=== PATIENT | female | born 1935 | race Caucasian/White ===

== ENCOUNTER → 2018-04-29 07:45 | Outpatient (CLI) | payer MEDICARE, OTHER, SELFPAY ==
[2018-04-29 08:57] LABS: Blood Urea Nitrogen 19 mg/dL (7-17); Calcium 9.3 mg/dL (8.4-10.2); Carbon Dioxide 29 mmol/L (22-32); Chloride 101 mmol/L (98-107); Cholesterol 148 mg/dL (140-199); Estimated Glomerular Filt Rate 53.2 mL/min (>60); Glucose 121 mg/dL (80-110); HDL Cholesterol 64 mg/dL (40-60); HEMOLYSIS < 15 (0-50); LDL Cholesterol Calculated 68 mg/dL (<100); Potassium 4.7 mmol/L (3.4-5.1); Sodium 139 mmol/L (137-145); Triglycerides 82 mg/dL (35-150)
== END ==
PROVIDERS: PCP Family Medicine; Visit Provider Internal Medicine Cardiovascular Disease
DX: I10 Essential (primary) hypertension (principal); E78.5 Hyperlipidemia, unspecified
CPT/HCPCS: 36415; 80048; 80061

== ENCOUNTER → 2018-05-28 16:21 | Outpatient (CLI) | payer MEDICARE, OTHER, SELFPAY ==
[2018-05-28 18:09] LABS: Hep C Virus Ab w/Reflex Quant NEGATIVE s/c (NEGATIVE)
== END ==
PROVIDERS: Family Provider Family Medicine; PCP Family Medicine; Visit Provider Family Medicine
DX: Z20.5 Contact with and (suspected) exposure to viral hepatitis (principal)
CPT/HCPCS: 36415; 86803

== ENCOUNTER → 2018-06-08 08:24 | Outpatient (CLI) | payer MEDICARE, OTHER, SELFPAY ==
[2018-06-08 09:32] LABS: Alanine Aminotransferase 15 IU/L (9-52); Albumin 4.3 g/dL (3.5-5.0); Albumin Globulin Ratio 1.7 (1.0-2.8); Alkaline Phosphatase 68 U/L (38-126); Aspartate Aminotransferase 30 IU/L (14-36); Bilirubin Total 0.7 mg/dL (0.2-1.3); Blood Urea Nitrogen 17 mg/dL (7-17); Calcium 9.3 mg/dL (8.4-10.2); Carbon Dioxide 30 mmol/L (22-32); Chloride 103 mmol/L (98-107); Estimated Glomerular Filt Rate 53.2 mL/min (>60); Globulin 2.5 g/dL (1.7-4.1); Glucose 105 mg/dL (80-110); HEMOLYSIS < 15 (0-50); Potassium 4.8 mmol/L (3.4-5.1); Sodium 142 mmol/L (137-145); Total Protein 6.8 g/dL (6.3-8.2)
== END ==
PROVIDERS: PCP Family Medicine; Visit Provider Family Medicine
DX: J45.909 Unspecified asthma, uncomplicated (principal); R06.09 Other forms of dyspnea
CPT/HCPCS: 36415; 80053

== ENCOUNTER → 2018-06-14 16:12 | Outpatient (CLI) | payer MEDICARE, OTHER, SELFPAY ==
--- NOTE | 2018-06-18 10:40 | PM.PFT.1 ---
Pulmonary Function Test Referral & Results Date Patient Seen: 06/14/18 Requesting provider: Aisha Felton Indication: Dyspnea Results: The spirometry demonstrates an FVC of 2.47 L which is 112% of predicted. The FEV1 was measured at 1.86 L which is 115% of predicted. The FEV1/FVC ratio was 75 which is 101% of predicted. Following the administration of bronchodilator there was no appreciable change in above normal numbers. Lung volumes show an SVC of 2.59 L which is 111% of predicted. The diffusing capacity was measured at 15.99 which is 79% of predicted. No hemoglobin value was provided, so no correction for potential anemia could be made, if appropriate. The maximum voluntary ventilation was not performed Interpretation: This study demonstrates normal spirometry and maybe slight reduction in diffusing capacity unless patient is anemic. This might be consistent with some element of disease at the capillary alveolar level Clinical correlation suggested
== END ==
PROVIDERS: Family Provider Family Medicine; PCP Family Medicine; Visit Provider Family Medicine
DX: R06.09 Other forms of dyspnea (principal)
CPT/HCPCS: 94010; 94060; 94726; 94729

== ENCOUNTER → 2018-10-27 08:42 | Outpatient (CLI) | payer MEDICARE, OTHER, SELFPAY ==
[2018-10-27 09:56] LABS: Alanine Aminotransferase 21 IU/L (9-52); Albumin 4.6 g/dL (3.5-5.0); Albumin Globulin Ratio 1.8 (1.0-2.8); Alkaline Phosphatase 70 U/L (38-126); Aspartate Aminotransferase 27 IU/L (14-36); BUN Creatinine Ratio 22.2 (6-22); Bilirubin Total 0.6 mg/dL (0.2-1.3); Blood Urea Nitrogen 20 mg/dL (7-17); Calcium 9.6 mg/dL (8.4-10.2); Carbon Dioxide 28 mmol/L (22-32); Chloride 103 mmol/L (98-107); Cholesterol 145 mg/dL (140-199); Estimated Glomerular Filt Rate > 60.0 mL/min (>60); Globulin 2.6 g/dL (1.7-4.1); Glucose 109 mg/dL (80-110); HDL Cholesterol 85 mg/dL (40-60); HEMOLYSIS < 15 (0-50); LDL Cholesterol Calculated 46 mg/dL (<100); Potassium 4.9 mmol/L (3.4-5.1); Sodium 140 mmol/L (137-145); Total Protein 7.2 g/dL (6.3-8.2); Triglycerides 69 mg/dL (35-150)
== END ==
PROVIDERS: PCP Family Medicine; Visit Provider Family Medicine
DX: E78.5 Hyperlipidemia, unspecified (principal); I10 Essential (primary) hypertension; R73.9 Hyperglycemia, unspecified
CPT/HCPCS: 36415; 80053; 80061; 83036

== ENCOUNTER → 2018-12-22 09:07 | Outpatient (CLI) | payer MEDICARE, OTHER, SELFPAY ==
[2018-12-22 09:43] LABS: Add Manual Diff / Slide Review NO; Basophils Absolute Auto 100 /uL (0-100); Eosinophils Absolute Auto 300 /uL (0-450); Eosinophils Percent Auto 4.8 % (2-4); Hematocrit 37.6 % (36-46); Hemoglobin 12.8 g/dL (12.0-16.0); Lymphocytes Absolute Auto 2000 /uL (1100-4500); Mean Corpuscular Hemoglobin 32.3 PG (26-34); Monocytes Absolute Auto 500 /uL (0-900); Neutrophils Absolute Auto 2500 /uL (1500-7000); Neutrophils Percent Auto 47.2 % (50-75); Platelet Count 193 X10^3/uL (150-400); Red Blood Cell Count 3.96 X10^6/uL (4.0-5.2); Red Cell Distribution Width 13.7 % (11.6-14.8); White Blood Cell Count 5.3 X10^3/uL (4.5-11.0)
[2018-12-22 10:23] LABS: Alanine Aminotransferase 19 IU/L (9-52); Albumin 4.4 g/dL (3.5-5.0); Albumin Globulin Ratio 1.7 (1.0-2.8); Alkaline Phosphatase 88 U/L (38-126); Aspartate Aminotransferase 29 IU/L (14-36); Bilirubin Total 0.6 mg/dL (0.2-1.3); Blood Urea Nitrogen 24 mg/dL (7-17); Calcium 9.5 mg/dL (8.4-10.2); Carbon Dioxide 28 mmol/L (22-32); Chloride 100 mmol/L (98-107); Cholesterol 146 mg/dL (140-199); Estimated Glomerular Filt Rate 53.2 mL/min (>60); Globulin 2.6 g/dL (1.7-4.1); Glucose 118 mg/dL (80-110); HDL Cholesterol 66 mg/dL (40-60); HEMOLYSIS < 15 (0-50); LDL Cholesterol Calculated 68 mg/dL (<100); Sodium 136 mmol/L (137-145); Triglycerides 61 mg/dL (35-150)
[2018-12-22 10:46] LABS: Thyroid Stimulating Hormone 2.27 uIU/mL (0.47-4.68)
== END ==
PROVIDERS: Family Provider Family Medicine; PCP Family Medicine; Visit Provider Internal Medicine Cardiovascular Disease
DX: I10 Essential (primary) hypertension (principal); E78.5 Hyperlipidemia, unspecified
CPT/HCPCS: 36415; 80053; 80061; 84443; 85025

== ENCOUNTER → 2019-05-27 07:17 | Outpatient (CLI) | payer MEDICARE, OTHER, SELFPAY ==
[2019-05-27 08:01] LABS: Add Manual Diff / Slide Review NO; Basophils Absolute Auto 100 /uL (0-100); Basophils Percent Auto 0.9 % (0-2); Eosinophils Absolute Auto 200 /uL (0-450); Eosinophils Percent Auto 2.8 % (2-4); Hematocrit 37.5 % (36-46); Hemoglobin 12.9 g/dL (12.0-16.0); Lymphocytes Absolute Auto 2100 /uL (1100-4500); Lymphocytes Percent Auto 35.4 % (25-40); Mean Corpuscular HGB Conc 34.3 % (30-36); Mean Corpuscular Volume 96.2 fL (80-100); Monocytes Absolute Auto 600 /uL (0-900); Monocytes Percent Auto 10.3 % (3-14); Neutrophils Absolute Auto 3000 /uL (1500-7000); Neutrophils Percent Auto 50.6 % (50-75); Platelet Count 190 X10^3/uL (150-400); Red Cell Distribution Width 13.1 % (11.6-14.8)
[2019-05-27 08:17] LABS: Albumin 4.2 g/dL (3.5-5.0); Albumin Globulin Ratio 1.4 (1.0-2.8); Alkaline Phosphatase 72 U/L (38-126); Aspartate Aminotransferase 28 IU/L (14-36); BUN Creatinine Ratio 18.9 (6-22); Bilirubin Total 0.6 mg/dL (0.2-1.3); Blood Urea Nitrogen 17 mg/dL (7-17); Calcium 9.3 mg/dL (8.4-10.2); Carbon Dioxide 30 mmol/L (22-32); Chloride 99 mmol/L (98-107); Cholesterol 143 mg/dL (140-199); Estimated Glomerular Filt Rate 59.9 mL/min (>60); Globulin 2.9 g/dL (1.7-4.1); Glucose 105 mg/dL (80-110); HDL Cholesterol 69 mg/dL (40-60); HEMOLYSIS < 15 (0-50); LDL Cholesterol Calculated 58 mg/dL (<100); Potassium 3.7 mmol/L (3.4-5.1); Sodium 136 mmol/L (137-145); Total Protein 7.1 g/dL (6.3-8.2); Triglycerides 82 mg/dL (35-150)
[2019-05-27 08:27] LABS: Alanine Aminotransferase < 6 IU/L (9-52)
== END ==
PROVIDERS: Family Provider Family Medicine; PCP Family Medicine; Visit Provider Internal Medicine Cardiovascular Disease
DX: I10 Essential (primary) hypertension (principal); E78.5 Hyperlipidemia, unspecified; N18.9 Chronic kidney disease, unspecified; R73.9 Hyperglycemia, unspecified
CPT/HCPCS: 36415; 80053; 80061; 83036; 85025

== ENCOUNTER → 2019-08-30 08:48 | Outpatient (CLI) | payer MEDICARE, OTHER, SELFPAY ==
[2019-08-30 09:36] LABS: Alanine Aminotransferase 10 IU/L (<35); Albumin 4.6 g/dL (3.5-5.0); Albumin Globulin Ratio 1.6 (1.0-2.8); Alkaline Phosphatase 85 U/L (38-126); Aspartate Aminotransferase 30 IU/L (14-36); Bilirubin Total 0.8 mg/dL (0.2-1.3); Blood Urea Nitrogen 20 mg/dL (7-17); Calcium 9.5 mg/dL (8.4-10.2); Carbon Dioxide 29 mmol/L (22-32); Chloride 99 mmol/L (98-107); Estimated Glomerular Filt Rate 53.1 mL/min (>60); Globulin 2.9 g/dL (1.7-4.1); Glucose 127 mg/dL (80-110); HEMOLYSIS < 15 (0-50); Potassium 3.9 mmol/L (3.4-5.1); Sodium 138 mmol/L (137-145); Total Protein 7.5 g/dL (6.3-8.2)
== END ==
PROVIDERS: PCP Family Medicine; Visit Provider Family Medicine
DX: R73.9 Hyperglycemia, unspecified (principal); E78.5 Hyperlipidemia, unspecified; I10 Essential (primary) hypertension
CPT/HCPCS: 36415; 80053; 83036

== ENCOUNTER → 2019-12-01 09:11 | Outpatient (CLI) | payer MEDICARE, OTHER, SELFPAY ==
[2019-12-01 10:06] LABS: Hemoglobin A1C% w Est Avg Glu 6.2 % (4.0-6.0)
[2019-12-01 10:37] LABS: Alanine Aminotransferase 9 IU/L (<35); Albumin 4.6 g/dL (3.5-5.0); Albumin Globulin Ratio 1.5 (1.0-2.8); Alkaline Phosphatase 71 U/L (38-126); Aspartate Aminotransferase 30 IU/L (14-36); BUN Creatinine Ratio 21.2 (6-22); Bilirubin Total 0.8 mg/dL (0.2-1.3); Blood Urea Nitrogen 22 mg/dL (7-17); Calcium 9.9 mg/dL (8.4-10.2); Carbon Dioxide 30 mmol/L (22-32); Chloride 96 mmol/L (98-107); Cholesterol 135 mg/dL (140-199); Estimated Glomerular Filt Rate 50.7 mL/min (>60); Glucose 108 mg/dL (80-110); HDL Cholesterol 59 mg/dL (40-60); HEMOLYSIS < 15 (0-50); LDL Cholesterol Calculated 62 mg/dL (<100); Potassium 4.2 mmol/L (3.4-5.1); Sodium 134 mmol/L (137-145); Total Protein 7.6 g/dL (6.3-8.2); Triglycerides 69 mg/dL (35-150)
[2019-12-01 10:52] LABS: Creatinine Urine Random 89.1 mg/dL
[2019-12-01 10:55] LABS: Microalbumi Creatinin Ratio Ur 87.5 ug/mg CR (<30); Microalbumin Urine Random 7.8 mg/dL (0-1.6)
[2019-12-01 11:06] LABS: Thyroid Stimulating Hormone 2.39 uIU/mL (0.47-4.68)
== END ==
PROVIDERS: Family Medicine; PCP Family Medicine; Referring Provider Family Medicine; Visit Provider Family Medicine
DX: E78.5 Hyperlipidemia, unspecified (principal); I10 Essential (primary) hypertension; R73.9 Hyperglycemia, unspecified
CPT/HCPCS: 36415; 80053; 80061; 82043; 82570; 83036; 84443

== ENCOUNTER → 2020-07-18 09:14 | Outpatient (CLI) | payer MEDICARE, OTHER, SELFPAY ==
[2020-07-18 10:35] LABS: Add Manual Diff / Slide Review NO; Basophils Absolute Auto 100 /uL (0-100); Eosinophils Absolute Auto 300 /uL (0-450); Eosinophils Percent Auto 4.7 % (2-4); Hematocrit 35.3 % (36-46); Lymphocytes Absolute Auto 1500 /uL (1100-4500); Lymphocytes Percent Auto 23.9 % (25-40); Mean Corpuscular HGB Conc 33.9 % (30-36); Mean Corpuscular Hemoglobin 32.3 PG (26-34); Mean Corpuscular Volume 95.3 fL (80-100); Monocytes Absolute Auto 700 /uL (0-900); Monocytes Percent Auto 11.2 % (3-14); Neutrophils Absolute Auto 3700 /uL (1500-7000); Neutrophils Percent Auto 59.2 % (50-75); Platelet Count 219 X10^3/uL (150-400); White Blood Cell Count 6.2 X10^3/uL (4.5-11.0)
[2020-07-18 11:16] LABS: Alanine Aminotransferase 7 IU/L (<35); Albumin Globulin Ratio 1.5 (1.0-2.8); Alkaline Phosphatase 82 U/L (38-126); Aspartate Aminotransferase 27 IU/L (14-36); BUN Creatinine Ratio 18.1 (6-22); Bilirubin Total 0.6 mg/dL (0.2-1.3); Blood Urea Nitrogen 17 mg/dL (7-17); Calcium 9.2 mg/dL (8.4-10.2); Carbon Dioxide 30 mmol/L (22-32); Chloride 98 mmol/L (98-107); Cholesterol 116 mg/dL (140-199); Estimated Glomerular Filt Rate 56.9 mL/min (>60); Globulin 2.7 g/dL (1.7-4.1); Glucose 109 mg/dL (80-110); HDL Cholesterol 61 mg/dL (40-60); HEMOLYSIS < 15 (0-50); LDL Cholesterol Calculated 43 mg/dL (<100); Potassium 4.4 mmol/L (3.4-5.1); Sodium 133 mmol/L (137-145); Total Protein 6.7 g/dL (6.3-8.2); Triglycerides 61 mg/dL (35-150)
== END ==
PROVIDERS: PCP Family Medicine; Referring Provider Family Medicine; Visit Provider Family Medicine
DX: E78.5 Hyperlipidemia, unspecified (principal); I10 Essential (primary) hypertension; N18.9 Chronic kidney disease, unspecified
CPT/HCPCS: 36415; 80053; 80061; 85025

== ENCOUNTER → 2020-08-02 09:57 | Outpatient (CLI) | payer MEDICARE, OTHER, SELFPAY ==
--- NOTE | 2020-08-02 11:00 | DIET.PN ---
Nutrition Initial Assessment:? ASSESS:?? Ms. Neff is a 85 yof referred for prediabetes. She has maintained an A1c of 6.0 for several years, but is recently starting to creep up. She endorses many stresses in her life that she believes has affected her health and current elevated readings. She has many food allergies and sometimes finds it difficult to manage her glucose with strict dietary patterns. She consumed a lot of plant based proteins and likes to snack. She monitors her fasting glucose daily. LABS: Per pt report:? A1c: 6.2 ? MEDS:?? na ? DIET: Per 24-hour recall:? B: 1 cup oatmeal w/ blueberries and sunflower butter, ? cup cranb or egg scramble, 1 c rice milk L: chicken w/ vegetables and quinoa or rice ; cabbage casserole D: sunflour butter sandwich; chips w/ hummus; soup ? Weight: 112lb Height: 60 in BMI: 21.9 ? Exercise:? housework NUTRITION DX 1.Altered Nutrition related labs related to impaired glucose metabolism, lack of previous exposure to accurate nutrition information as evidenced by pt report, dx of prediabetes, previous diet high in refined carbohydrates.? INTERVENTION(s): 1. Discussed pathophysiology of diabetes. Reviewed A1c and its correlation to blood glucose numbers. Discussed recommended BG ranges. 2. Discussed importance of self-monitoring, how often, and when to check. 3. Discussed impact of nutrition/diet on blood sugar control.? Discussed fed versus non-fed state.?? 4. Discussed the effect of carbohydrates/protein/fat on blood sugar control.? Stressed importance of consistent carbohydrate intake at each meal and provided instructions for recommended servings/portions of carbohydrates/protein per meal. Provided pt with educational material. 5. Reviewed carbohydrate counting and measuring carbohydrate content via serving sizes and reading nutrition labels.? Provided handouts.?? 6. Discussed the difference between simple versus complex carbohydrates and the effect of fiber on blood sugar control.? Discussed various methods to increase fiber content in diet. 7. Stressed importance of meal timing and not going >4-5 hours between meals. Encouraged adding protein to each meal to support glucose control. Provided list of protein foods. Discussed best protein options for heart health and to alleviate hunger. 8. Discussed plant based protein options for maintaining good glucose control. MONITOR/EVALUATE: Anticipate good compliance.
== END ==
PROVIDERS: PCP Family Medicine; Referring Provider Family Medicine; Visit Provider Family Medicine
DX: R73.03 Prediabetes (principal); Z71.3 Dietary counseling and surveillance
CPT/HCPCS: 97802

== ENCOUNTER 2020-12-05 09:41 | Emergency (ER) | payer MEDICARE, OTHER, SELFPAY ==
[2020-12-05 10:11] VITALS: BP 140/63; PULSE 67; RESP 16; TEMP 36.7; O2SAT 94
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
--- NOTE | 2020-12-05 11:17 | PC.NURSE ---
concerns the allergic reaction is coming back up from last night.
== END 2020-12-05 11:18 | disposition home or self-care (01) ==
PROVIDERS: Emergency Provider Emergency Medicine
DX: R53.83 Other fatigue (principal)
CPT/HCPCS: 99281

== ENCOUNTER 2020-12-05 17:55 | Emergency (ER) | payer MEDICARE, OTHER, SELFPAY ==
[2020-12-05 18:05] VITALS: BP 173/78; PULSE 72; RESP 18; TEMP 36.7; O2SAT 97
--- NOTE | 2020-12-05 18:47 | ED.AMS ---
HPI - Altered Mental Status General Chief Complaint: Altered Mental Status Stated Complaint: possible UTI, concerns of a stroke also Time Seen by Provider: 12/05/20 18:12 Source: patient and family Mode of arrival: Ambulatory Limitations: no limitations History of Present Illness HPI narrative: The patient presents now with mid back pain. She was seen this morning with concerns of confusion. She has no confusion now. Her daughter is with her, the patient and her daughter concur that she has been under a lot of stress lately. The confusion that was discussed this morning has resolved, she feels oriented, no suggestion of acute neurologic events. She speaks well for herself. She denies headache, sore throat, or difficulty breathing. She has asthma, she has an occasional cough, nothing acute for her. There is not a single cough during the interview and exam. She says she is eating drinking well. There was concern of a urine infection. However, she has DDD, and has a degree of chronic back pain. She denies abdominal pain, dysuria or hematuria. She has no history of kidney stone. She is prediabetic. Otrher than the back discomfort, she feels well, with no concerns about confusion or neurologic deficit that were discussed with her morning visit here. Symptoms are vague, but her primary concern his a UTI. Related Data Home Medications Medication Instructions Recorded Confirmed calcium mag zinc PO 06/01/18 11/01/20 mecobalamin (vitamin B12) 1,000 1,000 mcg SL DAILY 06/01/18 11/01/20 mcg disintegrating tablet,sublingual [place] grape extract PO 06/01/18 11/01/20 Previous Rx's Medication Instructions Recorded [lancets] #100 each 10/20/19 [truetrack test strip] #100 each 12/30/19 albuterol sulfate 90 mcg/actuation 2 puff INHALATION Q4-6H PRN #18 05/31/20 aerosol inhaler gram chlorthalidone 25 mg tablet 12.5 mg PO DAILY #15 tab 06/11/20 nitroglycerin 0.3 mg sublingual 0.3 mg SUBLINGUAL Q5-15M PRN #30 06/11/20 tablet tab rosuvastatin 5 mg tablet 2.5 mg PO DAILY #15 tab 08/02/20 losartan 100 mg tablet 100 mg PO DAILY #90 tab 09/18/20 Truetrack test strips #100 ea 10/16/20 diphenhydramine HCl 12.5 mg 12.5 mg PO TID PRN #90 tab 11/01/20 chewable tablet Allergies Allergy/AdvReac Type Severity Reaction Status Date / Time zoster vaccine live Allergy Severe per pt Verified 11/01/20 08:03 [From ZOSTAVAX (PF)] throat thickening. Estrogens [ESTROGENS] Allergy Intermediate headache Verified 11/01/20 08:03 amoxicillin Allergy Mild Verified 11/01/20 08:03 cephalexin Allergy Mild Verified 11/01/20 08:03 codeine Allergy Mild Verified 11/01/20 08:03 fluticasone Allergy Mild Verified 11/01/20 08:03 lactose Allergy Mild Verified 11/01/20 08:03 niacin Allergy Mild Verified 11/01/20 08:03 peanut Allergy Mild Verified 11/01/20 08:03 salmeterol Allergy Mild Verified 11/01/20 08:03 Sulfa (Sulfonamide Allergy Mild Verified 11/01/20 08:03 Antibiotics) ORANGE Allergy Mild Uncoded 11/01/20 08:03 Review of Systems Constitutional Constitutional: Denies body ache(s), Denies chills, Denies fatigue, Denies fever(s), Denies headache(s) and Denies weakness Eyes Eyes: Denies change in vision ENT Ears, Nose, Mouth, and Throat: Denies vertigo, Denies dizziness, Denies headache(s), Denies neck pain and Denies sore throat Cardiovascular Cardiovascular: Denies chest pain, Denies irregular heart rhythm, Denies leg edema, Denies lightheadedness and Denies dyspnea Respiratory Respiratory: Denies cough, Denies dyspnea and Denies wheezing Gastrointestinal Gastrointestinal: Denies abdominal pain, Denies diarrhea, Denies nausea and Denies vomiting Genitourinary Genitourinary: Denies dysuria Genitourinary: Denies dysuria Musculoskeletal Musculoskeletal: Denies back pain and Denies neck pain Integumentary/Breasts Skin/Breast: Denies lesions and Denies rash Neurologic Neurologic: Denies vertigo, Denies dizziness, Denies headache(s), Denies memory loss and Denies weakness Psychiatric Psychiatric: Reports anxiety and Denies memory loss Endocrine Endocrine: Denies fatigue Allergic/Immunologic Allergic/Immunologic: Denies wheezing Patient History Medical History Anxiety Asthma Cataracts, bilateral Chickenpox Diabetes Environmental allergies Hyperlipemia Hypertension Low back pain (~10/2006) Measles Multiple food allergies Mumps Osteoarthritis Rubella Surgical History Hx of cataract surgery (11/2017) Status post breast biopsy (~1995) Family History Brother Diabetes mellitus Father Bladder cancer Congestive heart failure Mother Diabetes mellitus Grandfather Stroke Grandmother Diabetes mellitus Grandfather No problems noted. Grandmother Heart disease Social History Smoking Status: Never smoker Smoking Status: Never smoker Substance Use Type: does not use Exam Initial Vital Signs Initial Vital Signs: Vital Signs Temperature 98.1 F 12/05/20 18:05 Pulse Rate 72 12/05/20 18:05 Respiratory Rate 18 12/05/20 18:05 Blood Pressure 173/78 H 12/05/20 18:05 Pulse Oximetry 97 12/05/20 18:05 Const General: cooperative and well developed Nutritional Appearance: well nourished HENNY Head: normocephalic and atraumatic Nose: external nose normal Face and sinus: sinuses nontender and face symmetric Mouth: oral mucosae normal and moist mucous membranes Throat: posterior oropharynx normal Eyes General: appearance normal, both eyes and all related structures Eyelids: eyelids normal Conjunctivae: conjunctivae normal Sclera: sclerae normal Pupils: PERRL EOM: EOM intact bilaterally Neck Neck: No lymphadenopathy and No tender Resp Auscultation: clear to auscultation bilaterally Cardio Rate: regular rate Rhythm: regular rhythm Heart Sounds: S1 normal, S2 normal, no click, no gallops, no murmurs and no rubs Pulses: normal peripheral pulses GI Inspection: non-distended Palpation: soft, no hepatosplenomegaly, No guarding and No tender Auscultation: normal bowel sounds Back/Spine/Pelvis Back: No CVA tenderness Skin General: no rashes or lesions noted and No petechiae Neuro General: patient alert, patient oriented x3, gait normal and no focal motor deficits Speech: speech normal Motor: muscle tone normal throughout Sensory Exam: no sensory deficits noted Extrem General: normal to inspection, full ROM, no calf tenderness, No clubbing and No cyanosis Psych Appearance: grossly normal and well kempt Speech and Movement: speech and movement normal Course Course Course Narrative: The patient raise a concern for anxiety, she feels her doctor should treat her. Her daughter confided with me privately, there issues with anxiety. She also expresses paranoia. There was concern about deficits in memory periodically. The patient is oriented on exam, although the details of her prior evaluation raise concerns for paranoia, and memory issues. This complex is symptoms raises concern for dementia. The patient thinks she is anxiety. I have advised her to follow up with her PCM, F accepted by the patient, the daughter should also be present. The both symptoms should be discussed. The patient initially resisted labs and head CT. Prior to discharge she suggest she she would undergo the CT, then again decided not to proceed. Vital Signs Vital signs: Vital Signs - 8 hr 12/05/20 18:05 12/05/20 19:47 12/05/20 19:54 Temperature 98.1 F Pulse Rate 72 68 63 Respiratory Rate 18 16 16 Blood Pressure 173/78 H 180/85 H 174/82 H Pulse Oximetry 97 99 96 MDM - Altered Mental Status Lab Data Labs: Point of Care Testing Glucose POC 134 Urine Dip Bedside Urine Glucose Negative Bedside Urine Bilirubin - Negative Bedside Urine Ketone - Negative Urine Specific [place] 1.010 Bedside Urine Occult Blood - Negative Bedside Urine pH 6.0 Bedside Urine Protein - Negative Bedside Urine Urobilinogen - Negative Bedside Urine Nitrite - Negative Bedside Urine Leukocytes - Negative Esterase Discharge Plan Departure Patient Disposition: Home Clinical Impression: Anxiety Instructions: DI for Anxiety -- Adult Activity Restrictions/Additional Instructions: You have no evidence of urinary tract infection. Take Tylenol as needed every 4 hours for back pain. Follow-up with your primary care doctor, I think additional evaluation for anxiety and memory is indicated. Return here as needed. Prescriptions: No Action calcium mag zinc PO RF: 0 mecobalamin (vitamin B12) 1,000 mcg tablet,disintegrating 1,000 mcg SL DAILY RF: 0 [place] grape extract PO RF: 0 (DME) [lancets] 0 .Route .MEDSUPPLY Qty: 100 RF: 3 (DME) [truetrack test strip] 0 .Route .MEDSUPPLY Qty: 100 RF: 3 Ventolin HFA 90 mcg/actuation HFA aerosol inhaler 2 puff INHALATION Q4-6H PRN (Reason: shortness of breath or wheezing) Qty: 18 RF: 3 chlorthalidone 25 mg tablet 12.5 mg PO DAILY Qty: 15 RF: 0 nitroglycerin [Nitrostat] 0.3 mg tablet, sublingual 0.3 mg Sublingual Q5-15M PRN (Reason: chest pain) Qty: 30 RF: 0 rosuvastatin [Crestor] 5 mg tablet 2.5 mg PO DAILY Qty: 15 RF: 5 losartan 100 mg tablet 100 mg PO DAILY Qty: 90 RF: 0 (DME) Truetrack test strips See Rx Instructions .Route .MEDSUPPLY Qty: 100 RF: 12 Children's Benadryl Allergy 12.5 mg tablet,chewable 12.5 mg PO TID PRN (Reason: anxiety) Qty: 90 RF: 0
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
[2020-12-05 19:47] VITALS: BP 180/85; PULSE 68; RESP 16; O2SAT 99
[2020-12-05 19:54] VITALS: BP 174/82; PULSE 63; RESP 16; O2SAT 96
== END 2020-12-05 19:54 | disposition home or self-care (01) ==
PROVIDERS: Emergency Provider Emergency Medicine
DX: F41.9 Anxiety disorder, unspecified (principal); R41.0 Disorientation, unspecified; M54.6 Pain in thoracic spine; R53.83 Other fatigue
CPT/HCPCS: 81003; 82962; 99281; 99282

== ENCOUNTER → 2020-12-08 11:16 | Outpatient (CLI) | payer MEDICARE, OTHER, SELFPAY ==
[2020-12-08 11:51] LABS: COVID19 -Nasal RAPID Negative (Negative)
== END ==
PROVIDERS: PCP Family Medicine; Visit Provider Physician Assistant
DX: Z11.59 Encounter for screening for other viral diseases (principal)
CPT/HCPCS: 87635

== ENCOUNTER 2020-12-08 14:07 | Emergency (ER) | payer MEDICARE, OTHER, SELFPAY ==
[2020-12-08 14:17] VITALS: BP 181/76; PULSE 69; RESP 18; TEMP 36.4; O2SAT 100; BMI 21.1
--- NOTE | 2020-12-08 14:21 | ED.GENADULT ---
HPI - General Adult General Chief complaint: Skin/Abscess/Foreign Body Stated complaint: infection in left arm, sent by [facility] Time Seen by Provider: 12/08/20 14:08 Source: patient Mode of arrival: Ambulatory Limitations: no limitations History of Present Illness HPI narrative: Patient is an 85-year-old female who was seen in this department 2 times over the past couple days for an unrelated issue today. She states that yesterday she talk with her primary doctor about a small wound on the back of her left hand right at the base of her index and ring fingers. She states that her primary doctor ordered her a antibiotic ointment and informed her that if redness or swelling worsen that she needed to come to the emergency department. She arrives today could she thought that this morning she had redness around her left wrist. She has not started the antibiotic ointment. She is not having any fevers. Denies trauma. Related Data Home Medications Medication Instructions Recorded Confirmed calcium mag zinc PO 06/01/18 12/08/20 mecobalamin (vitamin B12) 1,000 1,000 mcg SL DAILY 06/01/18 12/08/20 mcg disintegrating tablet,sublingual o[place] grape extract PO 06/01/18 12/08/20 Previous Rx's Medication Instructions Recorded [lancets] #100 each 10/20/19 [truetrack test strip] #100 each 12/30/19 albuterol sulfate 90 mcg/actuation 2 puff INHALATION Q4-6H PRN #18 05/31/20 aerosol inhaler gram chlorthalidone 25 mg tablet 12.5 mg PO DAILY #15 tab 06/11/20 nitroglycerin 0.3 mg sublingual 0.3 mg SUBLINGUAL Q5-15M PRN #30 06/11/20 tablet tab rosuvastatin 5 mg tablet 2.5 mg PO DAILY #15 tab 08/02/20 Truetrack test strips #100 ea 10/16/20 diphenhydramine HCl 12.5 mg 12.5 mg PO TID PRN #90 tab 11/01/20 chewable tablet losartan 100 mg tablet 100 mg PO DAILY #90 tab 12/07/20 doxycycline hyclate 100 mg PO BID 7 Days #14 tab 12/08/20 doxycycline hyclate 100 mg capsule 100 mg PO BID 10 Days #20 cap 12/08/20 mupirocin 2 % topical ointment 1 applic TOPICAL BID #30 g 12/08/20 Allergies Allergy/AdvReac Type Severity Reaction Status Date / Time zoster vaccine live Allergy Severe per pt Verified 12/08/20 14:16 [From ZOSTAVAX (PF)] throat thickening. Estrogens [ESTROGENS] Allergy Intermediate headache Verified 12/08/20 14:16 amoxicillin Allergy Mild Verified 12/08/20 14:16 cephalexin Allergy Mild Verified 12/08/20 14:16 codeine Allergy Mild Verified 12/08/20 14:16 fluticasone Allergy Mild Verified 12/08/20 14:16 lactose Allergy Mild Verified 12/08/20 14:16 niacin Allergy Mild Verified 12/08/20 14:16 peanut Allergy Mild Verified 12/08/20 14:16 salmeterol Allergy Mild Verified 12/08/20 14:16 Sulfa (Sulfonamide Allergy Mild Verified 12/08/20 11:22 Antibiotics) ORANGE Allergy Mild Uncoded 12/08/20 11:22 Review of Systems Constitutional Constitutional: Denies fever(s) Musculoskeletal Musculoskeletal: Denies tingling Comments: No wrist pain Integumentary/Breasts Comments: Redness and swelling around the left rest Neurologic Neurologic: Denies tingling Patient History Medical History Anxiety Asthma Cataracts, bilateral Chickenpox Diabetes Environmental allergies Hyperlipemia Hypertension Low back pain (~10/2006) Measles Multiple food allergies Mumps Osteoarthritis Rubella Surgical History Hx of cataract surgery (11/2017) Status post breast biopsy (~1995) Family History Brother Diabetes mellitus Father Bladder cancer Congestive heart failure Mother Diabetes mellitus Grandfather Stroke Grandmother Diabetes mellitus Grandfather No problems noted. Grandmother Heart disease Social History Smoking Status: Never smoker Smoking Status: Never smoker Substance Use Type: does not use Exam Initial Vital Signs Initial Vital Signs: Vital Signs Temperature 97.6 F 12/08/20 14:17 Pulse Rate 69 12/08/20 14:17 Respiratory Rate 18 03/20/21 14:17 Blood Pressure 181/76 H 12/08/20 14:17 Pulse Oximetry 100 12/08/20 14:17 Const General: cooperative and comfortable Cardio Pulses: radial pulses present on the left Skin Other: Patient with a 1 cm x 1 cm superficial ulceration on the dorsum of the left hand in between her index and middle finger. There is minimal surrounding erythema. Starting approximately the proximal 1/3 of the dorsum of the hand extending to just above the wrist there is redness on the dorsum aspect without drainage. It does extend somewhat on the volar aspect of the wrist. Extrem General: capillary refill normal Other: Full range of motion left wrist Psych Appearance: well kempt Course Orders Ordered: Discontinued Medications Doxycycline Hyclate (Doxycycline Hyclate 100 Mg Tablet) 100 mg PO NOW ONE Stop: 12/08/20 14:24 Last Admin: 12/08/20 14:27 Dose: 100 mg Documented by: Vital Signs Vital signs: Vital Signs - 8 hr 12/08/20 14:17 Temperature 97.6 F Pulse Rate 69 Respiratory Rate 18 Blood Pressure 181/76 H Pulse Oximetry 100 Medical Decision Making MDM Narrative Medical decision making narrative: Patient states that she does not know the name of the antibiotic ointment that her primary doctor prescribed her but she did state that it was a cream. She has not taken it up to this point. Low suspicion for septic joint. Low suspicion for sepsis. Will start her on doxycycline given her allergies and the nature of her cellulitis today. She was given 1st dose here in the emergency department and will send home with a prescription. She is given return precautions and follow-up instructions. She expressed understanding agreement. I do not feel patient needs admitted to hospital today for IV antibiotics Discharge Plan Departure Patient Disposition: Home Clinical Impression: Cellulitis Instructions: DI for Cellulitis -- Adult Activity Restrictions/Additional Instructions: There does appear to be an infection on the back of your left hand. We do need to start you on antibiotics. A prescription was electronically transmitted to [facility]. You were given the 1st dose of your antibiotics here in the emergency department. Your 2nd dose will be this evening. Please take it as directed. Continue the rest of your medications as directed. Return to the emergency department for any new or worsening symptoms Prescriptions: New doxycycline hyclate 100 mg tablet 100 mg PO BID 7 Days Qty: 14 RF: 0 No Action calcium mag zinc PO RF: 0 mecobalamin (vitamin B12) 1,000 mcg tablet,disintegrating 1,000 mcg SL DAILY RF: 0 [place] grape extract PO RF: 0 doxycycline hyclate 100 mg capsule 100 mg PO BID 10 Days Qty: 20 RF: 0 mupirocin 2 % ointment 1 applic topical BID Qty: 30 RF: 0 (DME) [lancets] 0 .Route .MEDSUPPLY Qty: 100 RF: 3 (DME) [truetrack test strip] 0 .Route .MEDSUPPLY Qty: 100 RF: 3 Ventolin HFA 90 mcg/actuation HFA aerosol inhaler 2 puff INHALATION Q4-6H PRN (Reason: shortness of breath or wheezing) Qty: 18 RF: 3 chlorthalidone 25 mg tablet 12.5 mg PO DAILY Qty: 15 RF: 0 nitroglycerin [Nitrostat] 0.3 mg tablet, sublingual 0.3 mg Sublingual Q5-15M PRN (Reason: chest pain) Qty: 30 RF: 0 rosuvastatin [Crestor] 5 mg tablet 2.5 mg PO DAILY Qty: 15 RF: 5 (DME) Truetrack test strips See Rx Instructions .Route .MEDSUPPLY Qty: 100 RF: 12 losartan 100 mg tablet 100 mg PO DAILY Qty: 90 RF: 0 Children's Benadryl Allergy 12.5 mg tablet,chewable 12.5 mg PO TID PRN (Reason: anxiety) Qty: 90 RF: 0 Referrals: Jamaal Garnica DO [Primary Care Provider] -
[2020-12-08 14:22] VITALS: PULSE 67; O2SAT 100
[2020-12-08] MEDS: DOXYCYCLINE HYCLATE 100 MG TABLET PO (14:27)
[2020-12-08 14:28] VITALS: BP 143/64; PULSE 67; O2SAT 100
== END 2020-12-08 15:10 | disposition home or self-care (01) ==
PROVIDERS: Emergency Provider Emergency Medicine; PCP Family Medicine
DX: L03.114 Cellulitis of left upper limb (principal); Z20.822 Contact with and (suspected) exposure to COVID-19
CPT/HCPCS: 87635; 99283

== ENCOUNTER → 2020-12-13 11:53 | Outpatient (CLI) | payer MEDICARE, OTHER, SELFPAY ==
[2020-12-13 12:14] LABS: Add Manual Diff / Slide Review NO; Basophils Absolute Auto 0 /uL (0-100); Basophils Percent Auto 0.3 % (0-2); Eosinophils Absolute Auto 0 /uL (0-450); Eosinophils Percent Auto 0.3 % (2-4); Hematocrit 35.8 % (36-46); Hemoglobin 12.4 g/dL (12.0-16.0); Lymphocytes Absolute Auto 1300 /uL (1100-4500); Lymphocytes Percent Auto 17.5 % (25-40); Mean Corpuscular HGB Conc 34.7 % (30-36); Mean Corpuscular Hemoglobin 32.8 PG (26-34); Mean Corpuscular Volume 94.4 fL (80-100); Monocytes Absolute Auto 800 /uL (0-900); Monocytes Percent Auto 10.8 % (3-14); Neutrophils Absolute Auto 5100 /uL (1500-7000); Neutrophils Percent Auto 71.1 % (50-75); Platelet Count 224 X10^3/uL (150-400); Red Blood Cell Count 3.79 X10^6/uL (4.0-5.2); Red Cell Distribution Width 13.2 % (11.6-14.8); White Blood Cell Count 7.2 X10^3/uL (4.5-11.0)
[2020-12-13 12:22] LABS: Hemoglobin A1C% w Est Avg Glu 6.3 % (4.0-6.0)
[2020-12-13 12:40] LABS: Alanine Aminotransferase 16 IU/L (<35); Albumin 4.4 g/dL (3.5-5.0); Albumin Globulin Ratio 1.7 (1.0-2.8); Alkaline Phosphatase 89 U/L (38-126); Aspartate Aminotransferase 45 IU/L (14-36); Bilirubin Total 0.7 mg/dL (0.2-1.3); Blood Urea Nitrogen 22 mg/dL (7-17); Calcium 9.6 mg/dL (8.4-10.2); Carbon Dioxide 28 mmol/L (22-32); Chloride 83 mmol/L (98-107); Cholesterol 146 mg/dL (140-199); Estimated Glomerular Filt Rate 47.4 mL/min (>60); Globulin 2.6 g/dL (1.7-4.1); Glucose 165 mg/dL (80-110); HDL Cholesterol 89 mg/dL (40-60); HEMOLYSIS < 15 (0-50); LDL Cholesterol Calculated 43 mg/dL (<100); Potassium 3.5 mmol/L (3.4-5.1); Sodium 120 mmol/L (137-145); Triglycerides 68 mg/dL (35-150)
[2020-12-13 13:29] LABS: Vitamin B12 974 pg/mL (239-931)
== END ==
PROVIDERS: Registered Nurse Diabetes Educator; PCP Family Medicine; Referring Provider Family Medicine; Visit Provider Family Medicine
DX: E11.22 Type 2 diabetes mellitus with diabetic chronic kidney disease (principal); I12.9 Hypertensive chronic kidney disease with stage 1 through stage 4 chronic kidney disease, or unspecified chronic kidney disease; N18.9 Chronic kidney disease, unspecified; E78.5 Hyperlipidemia, unspecified; F41.9 Anxiety disorder, unspecified
CPT/HCPCS: 36415; 80053; 80061; 82607; 83036; 85025

== ENCOUNTER 2020-12-13 16:41 | Inpatient (IN) | payer MEDICARE, OTHER, SELFPAY ==
[2020-12-13] VITALS (10 sets, daily range): BP systolic 145–174; BP diastolic 65–81; PULSE 64–77; RESP 14–39; TEMP 36.7–37.1; O2SAT 97–100; BMI 18.5
[2020-12-13 17:14] LABS: Add Manual Diff / Slide Review NO; Basophils Absolute Auto 0 /uL (0-100); Basophils Percent Auto 0.4 % (0-2); Eosinophils Absolute Auto 0 /uL (0-450); Eosinophils Percent Auto 0.3 % (2-4); Hematocrit 34.6 % (36-46); Hemoglobin 11.9 g/dL (12.0-16.0); Lymphocytes Absolute Auto 1400 /uL (1100-4500); Lymphocytes Percent Auto 17.5 % (25-40); Mean Corpuscular HGB Conc 34.5 % (30-36); Mean Corpuscular Hemoglobin 32.3 PG (26-34); Mean Corpuscular Volume 93.8 fL (80-100); Monocytes Absolute Auto 900 /uL (0-900); Monocytes Percent Auto 11.5 % (3-14); Neutrophils Absolute Auto 5600 /uL (1500-7000); Neutrophils Percent Auto 70.3 % (50-75); Platelet Count 213 X10^3/uL (150-400); Red Blood Cell Count 3.69 X10^6/uL (4.0-5.2); Red Cell Distribution Width 13.3 % (11.6-14.8)
[2020-12-13 17:21] LABS: INR 1.1 (0.9-1.3); Prothrombin Time 12.5 SECONDS (10.1-12.7)
[2020-12-13 17:23] LABS: PTT Partial Thromboplastin Tim 31 SECONDS (26.4-36.2)
[2020-12-13 17:25] LABS: Alanine Aminotransferase 16 IU/L (<35); Albumin 4.4 g/dL (3.5-5.0); Albumin Globulin Ratio 1.7 (1.0-2.8); Alkaline Phosphatase 84 U/L (38-126); Aspartate Aminotransferase 46 IU/L (14-36); BUN Creatinine Ratio 21.1 (6-22); Bilirubin Total 0.4 mg/dL (0.2-1.3); Blood Urea Nitrogen 27 mg/dL (7-17); Calcium 9.7 mg/dL (8.4-10.2); Carbon Dioxide 26 mmol/L (22-32); Chloride 82 mmol/L (98-107); Estimated Glomerular Filt Rate 39.8 mL/min (>60); Globulin 2.6 g/dL (1.7-4.1); Glucose 129 mg/dL (80-110); HEMOLYSIS < 15 (0-50); Lipase 475 U/L (23-300); Potassium 3.6 mmol/L (3.4-5.1); Sodium 120 mmol/L (137-145)
--- NOTE | 2020-12-13 18:23 | ED.RECABL ---
HPI - Recheck/Abnormal Lab/Rx <JOSEPH Agudelo - Last Filed: 12/13/20 19:25> General Chief Complaint: Recheck/Abnormal Lab/Rx Stated Complaint: Low Sodium Time Seen by Provider: 12/13/20 17:13 Source: patient and family Mode of arrival: Ambulatory Limitations: no limitations History of Present Illness HPI narrative: This is a 85 year female, nonsmoker, who has past medical history significant for hypertension, anxiety, chronic kidney disease, diabetes, hyperlipidemia, and recent cellulitis on left wrist and getting treated for doxycycline presents to ED with son with chief complain of hyponatremia. Patient reports in the past patient has known mild hyponatremia not as low as today's level. Patient was referred to ED by PCP. Patient reports feels agitated and patient's son other children noticed some confusion with difficulty with concentration at least for over a week. Patient reports due to hypertension, diabetes patient has low-sodium diet. Patient tries to hydrate adequately and drinks 8+ glasses of water daily. Patient reports some nausea. Last bowel movement today and denies constipation or abdominal pain. Patient denies chest pain, dyspnea. Patient recently started on Lexapro 2 days ago. Antibiotic medication dicloxacillin started on for 10 day course and patient has been seeing improvement for cellulitis. Patient denies recent nausea, vomiting, excessive diarrhea, or currently taking diuretics. Related Data Home Medications Medication Instructions Recorded Confirmed calcium mag zinc 500 mg PO QAM 06/01/18 12/13/20 mecobalamin (vitamin B12) 1,000 1,000 mcg SL DAILY 06/01/18 12/13/20 mcg disintegrating tablet,sublingual [place] grape extract PO 06/01/18 12/13/20 Previous Rx's Medication Instructions Recorded [lancets] #100 each 10/20/19 albuterol sulfate 90 mcg/actuation 2 puff INHALATION Q4-6H PRN #18 05/31/20 aerosol inhaler gram chlorthalidone 25 mg tablet 12.5 mg PO DAILY #15 tab 06/11/20 nitroglycerin 0.3 mg sublingual 0.3 mg SUBLINGUAL Q5-15M PRN #30 06/11/20 tablet tab Truetrack test strips #100 ea 10/16/20 losartan 100 mg tablet 100 mg PO DAILY #90 tab 12/07/20 doxycycline hyclate 100 mg PO BID 7 Days #14 tab 12/08/20 escitalopram oxalate 5 mg tablet 5 mg PO DAILY #30 tab 12/10/20 Allergies Allergy/AdvReac Type Severity Reaction Status Date / Time shrimp Allergy Severe Hives Verified 12/13/20 16:49 zoster vaccine live Allergy Severe per pt Verified 12/13/20 16:37 [From ZOSTAVAX (PF)] throat thickening. Estrogens [ESTROGENS] Allergy Intermediate headache Verified 12/13/20 16:37 amoxicillin Allergy Mild Verified 12/13/20 16:37 cephalexin Allergy Mild Verified 12/13/20 16:37 codeine Allergy Mild Verified 12/13/20 16:37 fluticasone Allergy Mild Verified 12/13/20 16:37 lactose Allergy Mild Verified 12/13/20 16:37 niacin Allergy Mild Verified 12/13/20 16:37 peanut Allergy Mild Verified 12/13/20 16:37 salmeterol Allergy Mild Verified 12/13/20 16:37 Sulfa (Sulfonamide Allergy Mild Verified 12/13/20 16:37 Antibiotics) ORANGE Allergy Mild Uncoded 12/13/20 16:37 Review of Systems <JOSEPH Agudelo - Last Filed: 12/13/20 19:25> Review of Systems Narrative: General: Denies fever, chills, fatigue, malaise, sweats. HEENT: Denies sinus pain, ear pain, sore throat, difficulty swallowing, dizziness. Respiratory: Denies dyspnea, cough, wheezing, hemoptysis, sputum. Cardiovascular: Denies chest pain, palpitations, orthopnea, edema. Gastrointestinal: Denies nausea, vomiting, abdominal pain, diarrhea, constipation, melena. : Denies dysuria, frequency, incontinence, hematuria, urinary retention. Musculoskeletal: Denies weakness, joint pain or bony pain. Skin: Denies rash, skin lesions, or other. Neurologic: See HPI Psychiatric: See HPI 12-point review of systems is negative except for those stated above. Patient History <JOSEPH Agudelo - Last Filed: 12/13/20 19:25> Medical History (Updated 12/13/20 @ 21:36 by JOSEPH Chambers) Acute hyponatremia Anxiety Asthma Cataracts, bilateral Chickenpox Delusion Diabetes Environmental allergies Hyperlipemia Hypertension Low back pain (~10/2006) Measles Multiple food allergies Mumps Osteoarthritis Rubella Surgical History Hx of cataract surgery (11/2017) Status post breast biopsy (~1995) Family History Brother Diabetes mellitus Father Bladder cancer Congestive heart failure Mother Diabetes mellitus Grandfather Stroke Grandmother Diabetes mellitus Grandfather No problems noted. Grandmother Heart disease Social History household members: spouse Smoking Status: Never smoker alcohol intake: never Smoking Status: Never smoker alcohol intake frequency: 0-2 drinks per day Substance Use Type: does not use Exam <JOSEPH Agudelo - Last Filed: 12/13/20 19:25> Narrative Exam Narrative: GEN: Alert, oriented x 3, thin-appearing appearing and in no acute distress. Head: Normal cephalic, atraumatic. No scalp or temporal tenderness, palpable mass or rash. EYES: Pupils reactive to light. Right pupil not perfectly round and patient reports had intra-ocular lens surgery. Extraocular muscles are intact bilaterally. There is no subconjunctival hemorrhage, exudate and sclera non-icteric. ENT: Hearing grossly intact. Airway patent. Oral mucous membrane dry. Neck: Trachea in midline. No JVD, non-tender without lymphadenopathy. No masses or thyroid megaly. Supple, non-tender and no meningeal signs. CARDIAC: Normal regular rate and rhythm without murmurs, gallops, or rubs. No chest wall tenderness. No peripheral edema, cyanosis or pallor. Capillary refill is less than 2 seconds. RESPIRATORY: Lungs are clear to auscultate bilaterally. No cough, wheezes, rales, or rhonchi. No stridor, respiratory distress, increase work of breathing, or accessary muscle used. ABD: Abdomen soft, nontender and non-distended. No guarding or rebound tenderness to palpate. Bowel sounds are normal in all 4 quadrants. There is no palpable masses or organomegaly. EXT: Full painless ROM of all extremities with no loss of sensation, strength, effusion or edema. SKIN: Warm, dry, normal color for patient. No erythema, lesions or rash over visible areas. BACK: Nontender without deformity or crepitance. No flank tenderness. NEUROLOGICAL: Alert and oriented to place, time and person. Sensation and motor function intact bilaterally. No facial droops, dysphasia. PSYCHIATRIC: Flat affect without hallucinations, no abnormal behaviors. Patient is not suicidal. Initial Vital Signs Initial Vital Signs: Vital Signs Temperature 98.6 F 12/13/20 16:43 Pulse Rate 75 12/13/20 16:43 Respiratory Rate 17 12/13/20 16:43 Blood Pressure 147/67 H 12/13/20 16:43 Pulse Oximetry 99 12/13/20 16:43 <Jimmy Gibbs DO - Last Filed: 12/13/20 22:16> Initial Vital Signs Initial Vital Signs: Vital Signs Temperature 98.6 F 12/13/20 16:43 Pulse Rate 75 12/13/20 16:43 Respiratory Rate 17 12/13/20 16:43 Blood Pressure 147/67 H 12/13/20 16:43 Pulse Oximetry 99 12/13/20 16:43 Scores <JOSEPH Agudelo - Last Filed: 12/13/20 19:25> GCS [place] coma scale eye opening: Spontaneous [place] coma scale verbal response: Orientated [place] coma scale motor response: Obey commands [place] coma scale total score: 15 Course <JOSEPH Agudleo - Last Filed: 12/13/20 19:25> Orders Ordered: ED Orders 12/13/20 16:50 EKG-12 Lead Stat 12/13/20 16:56 Complete Blood Count AUTO DIFF Stat Comprehensive Metabolic Panel Stat Lipase Stat Partial Thromboplastin Time Stat Prothrombin Time INR Stat TSH w/ Reflex to FT4 Stat 12/13/20 18:19 COVID19 - ADMIT ([employer] swab/PCR) Stat 12/13/20 18:59 Sodium Urine Random Stat 12/13/20 19:14 Osmolality Urine Stat Doxycycline Hyclate (Doxycycline Hyclate 100 Mg Tablet) 100 mg PO BID [facility] Last Admin: 12/13/20 20:46 Dose: 100 mg Documented by: ZANE Enoxaparin Sodium (Enoxaparin 40 Mg/0.4 Ml Syringe) 40 mg SUBCUT DAILY [facility] Escitalopram Oxalate (Escitalopram 10 Mg Tablet) 5 mg PO DAILY [facility] Sodium Chloride (Normal Saline 0.9%) 1,000 mls @ 100 mls/hr IV CONT [facility] Last Admin: 12/13/20 20:25 Dose: Not Given Documented by: ZANE Losartan Potassium (Losartan 50 Mg Tablet) 100 mg PO DAILY [facility] Naloxone HCl (Naloxone 0.4 Mg/Ml Vial) 0.2 mg IV Q2MIN PRN PRN Reason: Opiate Reversal Ondansetron HCl (Ondansetron 4 Mg/2 Ml Inj) 4 mg IV Q2HR PRN PRN Reason: Nausea And Vomiting Discontinued Medications Sodium Chloride (Normal Saline 0.9%) 1,000 mls @ 125 mls/hr IV CONT [facility] Last Infusion: 12/13/20 20:24 Dose: 100 mls/hr Documented by: Infusion: 12/13/20 19:12 Dose: 0 mls/hr Documented by: Admin: 12/13/20 18:35 Dose: 125 mls/hr Documented by: AZUL Vital Signs Vital signs: Vital Signs - 8 hr 12/13/20 16:43 12/13/20 17:26 12/13/20 17:27 Temperature 98.6 F Pulse Rate 75 69 66 Respiratory Rate 17 31 H 33 H Blood Pressure 147/67 H 163/72 H Pulse Oximetry 99 100 100 12/13/20 17:30 12/13/20 18:00 12/13/20 18:01 Temperature Pulse Rate 64 71 69 Respiratory Rate 37 H 34 H 39 H Blood Pressure 145/65 H 174/77 H Pulse Oximetry 100 100 99 <Jimmy Gibbs DO - Last Filed: 12/13/20 22:16> Orders Ordered: ED Orders 12/13/20 16:50 EKG-12 Lead Stat 12/13/20 16:56 Complete Blood Count AUTO DIFF Stat Comprehensive Metabolic Panel Stat Lipase Stat Partial Thromboplastin Time Stat Prothrombin Time INR Stat TSH w/ Reflex to FT4 Stat 12/13/20 18:19 COVID19 - ADMIT ([employer] swab/PCR) Stat 12/13/20 18:59 Sodium Urine Random Stat 12/13/20 19:14 Osmolality Urine Stat Doxycycline Hyclate (Doxycycline Hyclate 100 Mg Tablet) 100 mg PO BID [facility] Last Admin: 12/13/20 20:46 Dose: 100 mg Documented by: ZANE Enoxaparin Sodium (Enoxaparin 40 Mg/0.4 Ml Syringe) 40 mg SUBCUT DAILY [facility] Escitalopram Oxalate (Escitalopram 10 Mg Tablet) 5 mg PO DAILY [facility] Sodium Chloride (Normal Saline 0.9%) 1,000 mls @ 100 mls/hr IV CONT DI Last Admin: 12/13/20 20:25 Dose: Not Given Documented by: ZANE Losartan Potassium (Losartan 50 Mg Tablet) 100 mg PO DAILY [facility] Naloxone HCl (Naloxone 0.4 Mg/Ml Vial) 0.2 mg IV Q2MIN PRN PRN Reason: Opiate Reversal Ondansetron HCl (Ondansetron 4 Mg/2 Ml Inj) 4 mg IV Q2HR PRN PRN Reason: Nausea And Vomiting Discontinued Medications Sodium Chloride (Normal Saline 0.9%) 1,000 mls @ 125 mls/hr IV CONT DI Last Infusion: 12/13/20 20:24 Dose: 100 mls/hr Documented by: Infusion: 12/13/20 19:12 Dose: 0 mls/hr Documented by: Admin: 12/13/20 18:35 Dose: 125 mls/hr Documented by: AZUL Vital Signs Vital signs: Vital Signs - 8 hr 12/13/20 16:43 12/13/20 17:26 12/13/20 17:27 Temperature 98.6 F Pulse Rate 75 69 66 Respiratory Rate 17 31 H 33 H Blood Pressure 147/67 H 163/72 H Pulse Oximetry 99 100 100 12/13/20 17:30 12/13/20 18:00 12/13/20 18:01 Temperature Pulse Rate 64 71 69 Respiratory Rate 37 H 34 H 39 H Blood Pressure 145/65 H 174/77 H Pulse Oximetry 100 100 99 [facility] - Recheck/Abnormal Lab/Rx <JOSEPH Agudelo - Last Filed: 12/13/20 19:25> Differential Diagnosis Differential diagnosis: Likely other (Encounter for recheck of labs of hyponatremia) Medical Records Attestation: I reviewed the patient's medical records. Lab Data Attestation: I reviewed the patient's lab results. Result diagrams: 12/13/20 16:56 12/13/20 16:56 Labs: Lab Results 12/13/20 12/13/20 12/13/20 Range/Units 16:56 16:56 16:56 WBC 8.0 (4.5-11.0) X10^3/uL RBC 3.69 L (4.0-5.2) X10^6/uL Hgb 11.9 L (12.0-16.0) g/dL Hct 34.6 L (36-46) % MCV 93.8 (80-100) fL MCH 32.3 (26-34) PG MCHC 34.5 (30-36) % RDW 13.3 (11.6-14.8) % Plt Count 213 (150-400) X10^3/uL Neut % (Auto) 70.3 (50-75) % Lymph % (Auto) 17.5 L (25-40) % Dickens % (Auto) 11.5 (3-14) % Eos % (Auto) 0.3 L (2-4) % Baso % (Auto) 0.4 (0-2) % Neut # (Auto) 5600 (0842-8806) /uL Lymph # (Auto) 1400 (7585-5121) /uL Dickens # (Auto) 900 (0-900) /uL Eos # (Auto) 0 (0-450) /uL Baso # (Auto) 0 (0-100) /uL PT 12.5 (10.1-12.7) SECONDS INR 1.1 (0.9-1.3) APTT 31 (26.4-36.2) SECONDS Sodium 120 L (137-145) mmol/L Potassium 3.6 (3.4-5.1) mmol/L Chloride 82 L (98-107) mmol/L Carbon Dioxide 26 (22-32) mmol/L BUN 27 H (7-17) mg/dL Creatinine 1.28 H (0.52-1.04) mg/dL Estimated GFR 39.8 L (>60) mL/min BUN/Creatinine Ratio 21.1 (6-22) Glucose 129 H (80-110) mg/dL Calcium 9.7 (8.4-10.2) mg/dL Magnesium (1.6-2.3) mg/dL Total Bilirubin 0.4 (0.2-1.3) mg/dL AST 46 H (14-36) IU/L ALT 16 (<35) IU/L Alkaline Phosphatase 84 (38-126) U/L NT-Pro-B Natriuret Pep (<450) pg/mL Total Protein 7.0 (6.3-8.2) g/dL Albumin 4.4 (3.5-5.0) g/dL Globulin 2.6 (1.7-4.1) g/dL Albumin/Globulin Ratio 1.7 (1.0-2.8) Lipase 475 H (23-300) U/L TSH (0.47-4.68) uIU/mL SARS-CoV-2 (PCR) (Negative) 12/13/20 12/13/20 12/13/20 Range/Units 16:56 16:56 16:56 WBC (4.5-11.0) X10^3/uL RBC (4.0-5.2) X10^6/uL Hgb (12.0-16.0) g/dL Hct (36-46) % MCV (80-100) fL MCH (26-34) PG MCHC (30-36) % RDW (11.6-14.8) % Plt Count (150-400) X10^3/uL Neut % (Auto) (50-75) % Lymph % (Auto) (25-40) % Dickens % (Auto) (3-14) % Eos % (Auto) (2-4) % Baso % (Auto) (0-2) % Neut # (Auto) (0219-0142) /uL Lymph # (Auto) (6604-8564) /uL Dickens # (Auto) (0-900) /uL Eos # (Auto) (0-450) /uL Baso # (Auto) (0-100) /uL PT (10.1-12.7) SECONDS INR (0.9-1.3) APTT (26.4-36.2) SECONDS Sodium (137-145) mmol/L Potassium (3.4-5.1) mmol/L Chloride (98-107) mmol/L Carbon Dioxide (22-32) mmol/L BUN (7-17) mg/dL Creatinine (0.52-1.04) mg/dL Estimated GFR (>60) mL/min BUN/Creatinine Ratio (6-22) Glucose (80-110) mg/dL Calcium (8.4-10.2) mg/dL Magnesium 1.7 (1.6-2.3) mg/dL Total Bilirubin (0.2-1.3) mg/dL AST (14-36) IU/L ALT (<35) IU/L Alkaline Phosphatase (38-126) U/L NT-Pro-B Natriuret Pep 458 H (<450) pg/mL Total Protein (6.3-8.2) g/dL Albumin (3.5-5.0) g/dL Globulin (1.7-4.1) g/dL Albumin/Globulin Ratio (1.0-2.8) Lipase (23-300) U/L TSH 1.93 (0.47-4.68) uIU/mL SARS-CoV-2 (PCR) (Negative) 12/13/20 Range/Units 18:19 WBC (4.5-11.0) X10^3/uL RBC (4.0-5.2) X10^6/uL Hgb (12.0-16.0) g/dL Hct (36-46) % MCV (80-100) fL MCH (26-34) PG MCHC (30-36) % RDW (11.6-14.8) % Plt Count (150-400) X10^3/uL Neut % (Auto) (50-75) % Lymph % (Auto) (25-40) % Dickens % (Auto) (3-14) % Eos % (Auto) (2-4) % Baso % (Auto) (0-2) % Neut # (Auto) (6874-3389) /uL Lymph # (Auto) (3051-7379) /uL Dickens # (Auto) (0-900) /uL Eos # (Auto) (0-450) /uL Baso # (Auto) (0-100) /uL PT (10.1-12.7) SECONDS INR (0.9-1.3) APTT (26.4-36.2) SECONDS Sodium (137-145) mmol/L Potassium (3.4-5.1) mmol/L Chloride (98-107) mmol/L Carbon Dioxide (22-32) mmol/L BUN (7-17) mg/dL Creatinine (0.52-1.04) mg/dL Estimated GFR (>60) mL/min BUN/Creatinine Ratio (6-22) Glucose (80-110) mg/dL Calcium (8.4-10.2) mg/dL Magnesium (1.6-2.3) mg/dL Total Bilirubin (0.2-1.3) mg/dL AST (14-36) IU/L ALT (<35) IU/L Alkaline Phosphatase (38-126) U/L NT-Pro-B Natriuret Pep (<450) pg/mL Total Protein (6.3-8.2) g/dL Albumin (3.5-5.0) g/dL Globulin (1.7-4.1) g/dL Albumin/Globulin Ratio (1.0-2.8) Lipase (23-300) U/L TSH (0.47-4.68) uIU/mL SARS-CoV-2 (PCR) Negative (Negative) ECG Data Attestation: I personally reviewed and interpreted this ECG as follows: Prior ECG tracings: not available for review Interpretation: Normal sinus rhythm rate at 68 Normal [place]. [place] interval 124, QRS duration 86, QT/QTC 406/[address] changes MDM Narrative Medical decision making narrative: This is a 85 year female who presents to ED after she was referred by her primary care physician Dr. Garnica for evaluation and admission for hyponatremia with symptoms of nausea, feeling agitation, and patient's children noticed paranoia over 1 week. Patient takes low-sodium diet due to hypertension and diabetes and drinks but 8+ glasses of water daily to hydrate herself. Patient has known CKD and takes currently doxycycline for cellulitis on left wrist cellulitis and recently started Lexapro. Patient is alert and oriented x3. She denies history of seizure recently. Repeated chemistry test shows again sodium level of 120 of 82. Decreased kidney function test with BUN of 27, creatinine level of 1.28 and estimated GFR of 39.8. Patient's oral mucous membrane dry. Serum Glucose 129. Mildly elevated AST of 46 and Lipase slightly elevated to 475. Normal coag test. CBC test shows mild anemia of 11.9/34.6 which is the patient's baseline. Urine test ordered for sodium, infection, specific gravity and osmolarity. Patient started on gentle IV normal saline hydration rate at 125ml/hr. Post void bladder scanner shows 15 ml of urine. Limting free water intake at this time. Dr. Alexander kindly accepted patient's care to treat hyponatremia and possible cause. <Jimmy Gibbs, DO - Last Filed: 12/13/20 22:16> Lab Data Labs: Lab Results 12/13/20 12/13/20 12/13/20 Range/Units 16:56 16:56 16:56 WBC 8.0 (4.5-11.0) X10^3/uL RBC 3.69 L (4.0-5.2) X10^6/uL Hgb 11.9 L (12.0-16.0) g/dL Hct 34.6 L (36-46) % MCV 93.8 (80-100) fL MCH 32.3 (26-34) PG MCHC 34.5 (30-36) % RDW 13.3 (11.6-14.8) % Plt Count 213 (150-400) X10^3/uL Neut % (Auto) 70.3 (50-75) % Lymph % (Auto) 17.5 L (25-40) % Dick[place] % (Auto) 11.5 (3-14) % Eos % (Auto) 0.3 L (2-4) % Baso % (Auto) 0.4 (0-2) % Neut # (Auto) 5600 (0825-8750) /uL Lymph # (Auto) 1400 (9231-3889) /uL Dick[place] # (Auto) 900 (0-900) /uL Eos # (Auto) 0 (0-450) /uL Baso # (Auto) 0 (0-100) /uL PT 12.5 (10.1-12.7) SECONDS INR 1.1 (0.9-1.3) APTT 31 (26.4-36.2) SECONDS Sodium 120 L (137-145) mmol/L Potassium 3.6 (3.4-5.1) mmol/L Chloride 82 L (98-107) mmol/L Carbon Dioxide 26 (22-32) mmol/L BUN 27 H (7-17) mg/dL Creatinine 1.28 H (0.52-1.04) mg/dL Estimated GFR 39.8 L (>60) mL/min BUN/Creatinine Ratio 21.1 (6-22) Glucose 129 H (80-110) mg/dL Calcium 9.7 (8.4-10.2) mg/dL Magnesium (1.6-2.3) mg/dL Total Bilirubin 0.4 (0.2-1.3) mg/dL AST 46 H (14-36) IU/L ALT 16 (<35) IU/L Alkaline Phosphatase 84 (38-126) U/L NT-Pro-B Natriuret Pep (<450) pg/mL Total Protein 7.0 (6.3-8.2) g/dL Albumin 4.4 (3.5-5.0) g/dL Globulin 2.6 (1.7-4.1) g/dL Albumin/Globulin Ratio 1.7 (1.0-2.8) Lipase 475 H (23-300) U/L TSH (0.47-4.68) uIU/mL SARS-CoV-2 (PCR) (Negative) 12/13/20 12/13/20 12/13/20 Range/Units 16:56 16:56 16:56 WBC (4.5-11.0) X10^3/uL RBC (4.0-5.2) X10^6/uL Hgb (12.0-16.0) g/dL Hct (36-46) % MCV (80-100) fL MCH (26-34) PG MCHC (30-36) % RDW (11.6-14.8) % Plt Count (150-400) X10^3/uL Neut % (Auto) (50-75) % Lymph % (Auto) (25-40) % Dickens % (Auto) (3-14) % Eos % (Auto) (2-4) % Baso % (Auto) (0-2) % Neut # (Auto) (3902-6490) /uL Lymph # (Auto) (8226-1357) /uL Dickens # (Auto) (0-900) /uL Eos # (Auto) (0-450) /uL Baso # (Auto) (0-100) /uL PT (10.1-12.7) SECONDS INR (0.9-1.3) APTT (26.4-36.2) SECONDS Sodium (137-145) mmol/L Potassium (3.4-5.1) mmol/L Chloride (98-107) mmol/L Carbon Dioxide (22-32) mmol/L BUN (7-17) mg/dL Creatinine (0.52-1.04) mg/dL Estimated GFR (>60) mL/min BUN/Creatinine Ratio (6-22) Glucose (80-110) mg/dL Calcium (8.4-10.2) mg/dL Magnesium 1.7 (1.6-2.3) mg/dL Total Bilirubin (0.2-1.3) mg/dL AST (14-36) IU/L ALT (<35) IU/L Alkaline Phosphatase (38-126) U/L NT-Pro-B Natriuret Pep 458 H (<450) pg/mL Total Protein (6.3-8.2) g/dL Albumin (3.5-5.0) g/dL Globulin (1.7-4.1) g/dL Albumin/Globulin Ratio (1.0-2.8) Lipase (23-300) U/L TSH 1.93 (0.47-4.68) uIU/mL SARS-CoV-2 (PCR) (Negative) 12/13/20 Range/Units 18:19 WBC (4.5-11.0) X10^3/uL RBC (4.0-5.2) X10^6/uL Hgb (12.0-16.0) g/dL Hct (36-46) % MCV (80-100) fL MCH (26-34) PG MCHC (30-36) % RDW (11.6-14.8) % Plt Count (150-400) X10^3/uL Neut % (Auto) (50-75) % Lymph % (Auto) (25-40) % Dickens % (Auto) (3-14) % Eos % (Auto) (2-4) % Baso % (Auto) (0-2) % Neut # (Auto) (2862-8969) /uL Lymph # (Auto) (1874-4325) /uL Dickens # (Auto) (0-900) /uL Eos # (Auto) (0-450) /uL Baso # (Auto) (0-100) /uL PT (10.1-12.7) SECONDS INR (0.9-1.3) APTT (26.4-36.2) SECONDS Sodium (137-145) mmol/L Potassium (3.4-5.1) mmol/L Chloride (98-107) mmol/L Carbon Dioxide (22-32) mmol/L BUN (7-17) mg/dL Creatinine (0.52-1.04) mg/dL Estimated GFR (>60) mL/min BUN/Creatinine Ratio (6-22) Glucose (80-110) mg/dL Calcium (8.4-10.2) mg/dL Magnesium (1.6-2.3) mg/dL Total Bilirubin (0.2-1.3) mg/dL AST (14-36) IU/L ALT (<35) IU/L Alkaline Phosphatase (38-126) U/L NT-Pro-B Natriuret Pep (<450) pg/mL Total Protein (6.3-8.2) g/dL Albumin (3.5-5.0) g/dL Globulin (1.7-4.1) g/dL Albumin/Globulin Ratio (1.0-2.8) Lipase (23-300) U/L TSH (0.47-4.68) uIU/mL SARS-CoV-2 (PCR) Negative (Negative) Discharge Plan Departure Patient Disposition: Admitted As Inpatient Clinical Impression: Acute hyponatremia Admit Date/Time: 12/13/20 18:53 Admit Provider: Joshua Connelly <Jimmy Gibbs, - Last Filed: 12/13/20 22:16> Cosign ED Attending Cosignature Attestation: Dr Gibbs Co-Sign Statement: I was available for consultation during this patient's emergency department visit. This chart is signed by myself for administrative purposes only. I did not have direct contact with this patient during this visit. They were seen independently by the APC.
--- NOTE | 2020-12-13 18:27 | PC.NURSE ---
patient complains of being lightheaded and dizzy for approx 1 week.
[2020-12-13] MEDS: SODIUM CHLORIDE 0.9% 1,000 ML 125 ML IV (18:35)
[2020-12-13 18:57] LABS: TSH w/ Reflex to FT4 1.93 uIU/mL (0.47-4.68)
[2020-12-13 19:16] LABS: Sodium Urine Random 40 mmol/L (30-90)
[2020-12-13 19:21] LABS: COVID19 - ADMIT (NP swab/PCR) Negative (Negative)
[2020-12-13 20:41] LABS: Magnesium 1.7 mg/dL (1.6-2.3)
[2020-12-13] MEDS: DOXYCYCLINE HYCLATE 100 MG TABLET PO (20:46)
[2020-12-13 20:50] LABS: NT-proBNP (BNP-Adult 18+) 458 pg/mL (<450)
--- NOTE | 2020-12-13 21:34 | P.HP_ITS ---
History of Present Illness History of Present Illness Date Patient Seen: 12/13/20 Time Patient Seen: 21:31 Chief complaint: Low Sodium Narrative: Ms. Khushbu Neff is an 85-year-old female with a past medical history significant for asthma, previous hyponatremia, hypertension, CKD, diabetes type 2 (diet controlled), hyperlipidemia and currently taking antibiotics for cellulitis left wrist who was sent in to the ER for evaluation by her primary care provider for hyponatremia. The patient was having labs done by her primary care provider found her serum sodium to be 120. For the family the patient has been having more agitation and confusion for the last week. She has started new prescription of escitalopram 5 mg daily. The patient reports to the ED provider that she reports dry to maintain hydration drinking 8 or more glasses water per day. The patient is also on diuretic therapy with chlorthalidone. The patient denies complaints of pain or illness. She denies fevers or chills, nasal congestion or sore throat. She has no complaints of chest pain, palpitations or shortness of breath. The patient denies complaints of abdominal pain, nausea vomiting, diarrhea or constipation. She reports multiple food allergies and avoids salt containing foods. Diabetes is effective diet controlled demonstrated by her last hemoglobin A1c of 6.3 (11/23/2020). Patient reports she does walk and uses walking stick for support. Upon arrival to the ER the patient has a temperature of 98.6?, heart rate of 75, blood pressure 147/67, respirations 17 saturating 100% on room air. No imaging was obtained. Twelve lead EKG feels a normal sinus rhythm at rate of 67 without ectopy or block, no ST or T-wave abnormalities no indication of infarct. On laboratory analysis she has white count of 8.0, hemoglobin 11.9, hematocrit 34.6, platelets 123. Coagulation studies are within normal range. On chemistries she is notable for low sodium of 120, BUN of 27 and creatinine 1.28. Nonfasting glucose is 129. She has a total bilirubin 0.4 and elevated AST of 46, ALT 16 alkaline phosphatase of 84. Her lipase is mildly elevated at 4 75. She has a TSH of 1.93. Her urinalysis is unremarkable and has specific gravity of 1.015. Her spot urine sodium is within normal range of 40. In the ER the patient is started on normal saline 125 cc/hour. The patient is admitted to the hospitalist service for hyponatremia. PCP: Dr. Garnica Patient History Medical History (Updated 12/13/20 @ 21:36 by JOSEPH Chambers) Acute hyponatremia Anxiety Asthma Cataracts, bilateral Chickenpox Delusion Diabetes Environmental allergies Hyperlipemia Hypertension Low back pain (~10/2006) Measles Multiple food allergies Mumps Osteoarthritis Rubella Surgical History Hx of cataract surgery (11/2017) Status post breast biopsy (~1995) Family & Social History Family History Brother Diabetes mellitus Father Bladder cancer Congestive heart failure Mother Diabetes mellitus Grandfather Stroke Grandmother Diabetes mellitus Grandfather No problems noted. Grandmother Heart disease Social History: household members spouse Prior Living Arrangements House Safety & Behavioral: Feels Safe in Current Yes Environment Been Physically Hurt or No Threatened By a Person Suicidal Ideation Description None Suicide Plan Description No Plan Tobacco & Substance use: Smoking Status Never smoker alcohol intake never alcohol intake frequency 0-2 drinks per day Substance Use Type does not use Meds Home Medications and Allergies Home Medications Medication Instructions Recorded Confirmed Type calcium mag zinc 500 mg PO QAM 06/01/18 12/13/20 History mecobalamin (vitamin B12) 1,000 1,000 mcg SL DAILY 06/01/18 12/13/20 History mcg disintegrating tablet,sublingual [place] grape extract PO 06/01/18 12/13/20 History [lancets] #100 each 10/20/19 12/13/20 Rx albuterol sulfate 90 mcg/actuation 2 puff INHALATION Q4-6H PRN #18 05/31/20 12/13/20 Rx aerosol inhaler gram chlorthalidone 25 mg tablet 12.5 mg PO DAILY #15 tab 06/11/20 12/13/20 Rx nitroglycerin 0.3 mg sublingual 0.3 mg SUBLINGUAL Q5-15M PRN #30 06/11/20 12/13/20 Rx tablet tab Truetrack test strips #100 ea 10/16/20 12/13/20 Rx losartan 100 mg tablet 100 mg PO DAILY #90 tab 12/07/20 12/13/20 Rx doxycycline hyclate 100 mg PO BID 7 Days #14 tab 12/08/20 12/13/20 Rx escitalopram oxalate 5 mg tablet 5 mg PO DAILY #30 tab 12/10/20 12/13/20 Rx Allergies Allergy/AdvReac Type Severity Reaction Status Date / Time shrimp Allergy Severe Hives Verified 12/13/20 16:49 zoster vaccine live Allergy Severe per pt Verified 12/13/20 16:37 [From ZOSTAVAX (PF)] throat thickening. Estrogens [ESTROGENS] Allergy Intermediate headache Verified 12/13/20 16:37 amoxicillin Allergy Mild Verified 12/13/20 16:37 cephalexin Allergy Mild Verified 12/13/20 16:37 codeine Allergy Mild Verified 12/13/20 16:37 fluticasone Allergy Mild Verified 12/13/20 16:37 lactose Allergy Mild Verified 12/13/20 16:37 niacin Allergy Mild Verified 12/13/20 16:37 peanut Allergy Mild Verified 12/13/20 16:37 salmeterol Allergy Mild Verified 12/13/20 16:37 Sulfa (Sulfonamide Allergy Mild Verified 12/13/20 16:37 Antibiotics) ORANGE Allergy Mild Uncoded 12/13/20 16:37 Review of Systems Review of Systems ROS: Yes All systems reviewed with the patient and are negative except as otherwise documented Exam Vital Signs (past 8 hours): - 12/13/20 16:43 12/13/20 17:26 12/13/20 17:27 Temperature 98.6 F Pulse Rate 75 69 66 Respiratory Rate 17 31 H 33 H Blood Pressure 147/67 H 163/72 H Pulse Oximetry 99 100 100 12/13/20 17:30 12/13/20 18:00 12/13/20 18:01 Temperature Pulse Rate 64 71 69 Respiratory Rate 37 H 34 H 39 H Blood Pressure 145/65 H 174/77 H Pulse Oximetry 100 100 99 12/13/20 19:20 12/13/20 19:38 Temperature 98.1 F 98.1 F Pulse Rate 77 77 Respiratory Rate 14 14 Blood Pressure 173/79 H 173/79 H Pulse Oximetry 97 100 Oxygen Delivery Method Room Air Narrative Exam Narrative: GENERAL APPEARANCE: well developed, cachectic appearing elderly woman with a BMI of 19.2 in no acute distress. HEENT: Normocephalic, PERRLA, conjunctiva clear, EOMs intact without nystagmus, mucous membranes are moist and pink without lesions or exudate. NECK/THYROID: neck supple, no JVD, no thyromegaly, trachea midline. LYMPH NODES: no cervical or supraclavicular lymphadenopathy. SKIN: [place], warm and dry. HEART: regular rate and rhythm, S1-split S2, no murmur, no rubs or gallops, brisk capillary refill, no edema LUNGS: clear to auscultation bilaterally, no coarseness crackles or wheezing, no cough present CHEST: Symmetrical movement, no accessory muscle use, good tidal volume. ABDOMEN: Soft, no distention, no abdominal tenderness, no guarding or peritoneal signs, no organomegaly, no flank or suprapubic tenderness, active bowel tones. BACK: Normal curvature, nontender to palpation, no CVA tenderness on percussion EXTREMITIES: Mild redness the dorsal left without swelling or tenderness, moves all extremities, strength is 5/5 and symmetrical, no deformities or joint effusions. NEUROLOGIC: AAO x3, memory Jaquan call appear intact, occasional out of context or nonsensical statements, cranial nerves II-XII grossly intact, sensation intact to light touch, hearing grossly normal to speech. PSYCH: cooperative, appropriate with stable behavior Objective Labs Result Diagrams: 12/13/20 16:56 12/13/20 23:55 Labs: Laboratory Results - last 24 hr 12/13/20 12/13/20 12/13/20 16:56 16:56 16:56 WBC 8.0 RBC 3.69 L Hgb 11.9 L Hct 34.6 L MCV 93.8 MCH 32.3 MCHC 34.5 RDW 13.3 Plt Count 213 Neut % (Auto) 70.3 Lymph % (Auto) 17.5 L [place] % (Auto) 11.5 Eos % (Auto) 0.3 L Baso % (Auto) 0.4 Neut # (Auto) 5600 Lymph # (Auto) 1400 [place] # (Auto) 900 Eos # (Auto) 0 Baso # (Auto) 0 PT 12.5 INR 1.1 APTT 31 Sodium 120 L Potassium 3.6 Chloride 82 L Carbon Dioxide 26 BUN 27 H Creatinine 1.28 H Estimated GFR 39.8 L BUN/Creatinine Ratio 21.1 Glucose 129 H Calcium 9.7 Magnesium Total Bilirubin 0.4 AST 46 H ALT 16 Alkaline Phosphatase 84 NT-Pro-B Natriuret Pep Total Protein 7.0 Albumin 4.4 Globulin 2.6 Albumin/Globulin Ratio 1.7 Lipase 475 H TSH Ur Random Sodium SARS-CoV-2 (PCR) 12/13/20 12/13/20 12/13/20 16:56 16:56 16:56 WBC RBC Hgb Hct MCV MCH MCHC RDW Plt Count Neut % (Auto) Lymph % (Auto) [place] % (Auto) Eos % (Auto) Baso % (Auto) Neut # (Auto) Lymph # (Auto) [place] # (Auto) Eos # (Auto) Baso # (Auto) PT INR APTT Sodium Potassium Chloride Carbon Dioxide BUN Creatinine Estimated GFR BUN/Creatinine Ratio Glucose Calcium Magnesium 1.7 Total Bilirubin AST ALT Alkaline Phosphatase NT-Pro-B Natriuret Pep 458 H Total Protein Albumin Globulin Albumin/Globulin Ratio Lipase TSH 1.93 Ur Random Sodium SARS-CoV-2 (PCR) 12/13/20 12/13/20 18:19 18:59 WBC RBC Hgb Hct MCV MCH MCHC RDW Plt Count Neut % (Auto) Lymph % (Auto) [place] % (Auto) Eos % (Auto) Baso % (Auto) Neut # (Auto) Lymph # (Auto) [place] # (Auto) Eos # (Auto) Baso # (Auto) PT INR APTT Sodium Potassium Chloride Carbon Dioxide BUN Creatinine Estimated GFR BUN/Creatinine Ratio Glucose Calcium Magnesium Total Bilirubin AST ALT Alkaline Phosphatase NT-Pro-B Natriuret Pep Total Protein Albumin Globulin Albumin/Globulin Ratio Lipase TSH Ur Random Sodium 40 SARS-CoV-2 (PCR) Negative Assessment & Plan Assessment & Plan narrative: This is an 85-year-old female with a past medical history significant for asthma, previous hyponatremia, hypertension, CKD, diabetes type 2 (diet controlled), hyperlipidemia and currently taking antibiotics for cellulitis left wrist who was sent in to the ER for evaluation by her primary care provider for hyponatremia. 1. Acute hyponatremia, present on admission, active -patient with serum sodium of 120. She demonstrates mild confusion. -cause is multifactorial with increased water intake producing delusional effects as well as chlorthalidone 25 mg daily. -normal saline 100 cc/hour, will recheck BMP at midnight and titrate IV rate accordingly. -patient has been drinking excessively is placed on a p.o. fluid restriction of 1500 cc per day. -chlorthalidone is held. 2. Acute kidney injury superimposed on chronic kidney disease stage IIIA, pres ent on admission, active -initial labs find creatinine of 1.28 with an EGFR of 38.9, patient's baseline creatinine 0.94 with an EGFR of 56.9. -patient received normal saline at 100 cc/hour for hyponatremia as above. -will follow renal function on serial chemistry 3. Cellulitis left hand, resolving. -patient diagnosed with cellulitis to the left wrist, presents with redness of the dorsum left hand without pain or swelling. -patient prescribed doxycycline for 7 days started on 12/08/2020. Ordered doxycycline 100 mg twice daily for the remaining 2 days. 4. Diabetes type 2 diet controlled, chronic, stable. -serum glucose is 129 on initial labs. Hemoglobin A1c obtained on 11/23/2020 is 6.3 reflecting adequate glycemic control. -ordered small consistent carbohydrate heart healthy diet. 5. Protein calorie malnutrition, chronic -patient with poor muscle mass and a BMI of 19.2. -requested dietitian consult to evaluate and discuss the patient's food choices and food allergies. VTE prophylaxis: Enoxaparin IV fluid: Normal saline 100 cc/hour Diet: Small consistent carbohydrate heart healthy Code status: Full code, patient designates her son or daughter to be her surrogate decision maker. The patient is admitted to the hospital due to the severity of her symptoms requiring further monitoring and interventions. The patient is admitted as an inpatient for controlled sodium repletion with expected length of stay to be greater than 2 midnights. COVID-19 COVID-19 status: Negative Result date/Date tested (Pos, Neg/Pending): 12/13/20 Scores GCS Lockhart coma scale eye opening: Spontaneous Lockhart coma scale verbal response: Orientated Meagan coma scale motor response: Obey commands Lockhart coma scale total score: 15
[2020-12-14] VITALS (8 sets, daily range): BP systolic 115–176; BP diastolic 59–91; PULSE 63–81; RESP 15–20; TEMP 36.6–36.9; O2SAT 98–100
[2020-12-14 00:16] LABS: BUN Creatinine Ratio 27.1 (6-22); Blood Urea Nitrogen 23 mg/dL (7-17); Calcium 9.3 mg/dL (8.4-10.2); Carbon Dioxide 26 mmol/L (22-32); Chloride 90 mmol/L (98-107); Estimated Glomerular Filt Rate > 60.0 mL/min (>60); Glucose 125 mg/dL (80-110); HEMOLYSIS < 15 (0-50); Potassium 3.4 mmol/L (3.4-5.1); Sodium 124 mmol/L (137-145)
[2020-12-14] MEDS: SODIUM CHLORIDE 0.9% 1,000 ML 84 ML IV (04:56)
[2020-12-14 05:15] LABS: Add Manual Diff / Slide Review NO; Basophils Absolute Auto 0 /uL (0-100); Basophils Percent Auto 0.4 % (0-2); Eosinophils Absolute Auto 0 /uL (0-450); Eosinophils Percent Auto 0.8 % (2-4); Hematocrit 32.9 % (36-46); Hemoglobin 11.3 g/dL (12.0-16.0); Lymphocytes Absolute Auto 1200 /uL (1100-4500); Lymphocytes Percent Auto 23.4 % (25-40); Mean Corpuscular HGB Conc 34.5 % (30-36); Mean Corpuscular Hemoglobin 32.3 PG (26-34); Mean Corpuscular Volume 93.9 fL (80-100); Monocytes Absolute Auto 700 /uL (0-900); Neutrophils Absolute Auto 3200 /uL (1500-7000); Neutrophils Percent Auto 61.4 % (50-75); Platelet Count 191 X10^3/uL (150-400); Red Cell Distribution Width 13.3 % (11.6-14.8); White Blood Cell Count 5.2 X10^3/uL (4.5-11.0)
[2020-12-14 05:22] LABS: BUN Creatinine Ratio 23.2 (6-22); Blood Urea Nitrogen 22 mg/dL (7-17); Carbon Dioxide 27 mmol/L (22-32); Chloride 94 mmol/L (98-107); Estimated Glomerular Filt Rate 56.2 mL/min (>60); Glucose 113 mg/dL (80-110); HEMOLYSIS < 15 (0-50); Potassium 3.8 mmol/L (3.4-5.1); Sodium 127 mmol/L (137-145)
[2020-12-14] MEDS: DOXYCYCLINE HYCLATE 100 MG TABLET PO ×2 (09:28→22:22)
[2020-12-14] MEDS: ENOXAPARIN 40 MG/0.4 ML SYRINGE SUBCUT (09:28)
[2020-12-14] MEDS: ESCITALOPRAM 10 MG TABLET 5 MG PO (09:28)
[2020-12-14] MEDS: LOSARTAN 50 MG TABLET 100 MG PO (09:29)
--- NOTE | 2020-12-14 11:06 | DIET.PN ---
Addendum entered by Connie Mullins 12/14/20 11:41: Pts son brought up allergy list, extensive 6 page document: No garlic, parsley, chervil, nutmeg, savory, pedro, coriander, cilantro, cashews, walnuts, hazelnuts, mint, chocolate, coconut, soy ice cream, niacin enriched flour products including breakfast cereals and enriched oatmeals. Original Note: Dietary Progress Note Assessment: 85y F admitted for hyponatremia (120) referred to nutrition for pt reported multiple food allergies/sensitivities and avoidance of sodium in diet. Per chart review, shrimp, peanuts, lactose, orange listed on allergy list. Pt reports to RD having multiple chemical sensitivity which includes many spices and fragrances in addition to foods. Pt reports sx including: thickness in mouth, itching, headaches. When asked specifics, pt unable to recall but states her son has a list as do Drs. Garnica and Zaheer. RD called Nahun's office and MA unable to locate list beyond items listed above. Nursing to call RD [phone] if son brings in list, otherwise kitchen informed to let pt lead on her food ordering. Pt reports having preDM and HTN and feels these diets clash. Pt was suprised to find out she should be consuming 1,500mg sodium per day and says she aims for no sodium intake. Pt somewhat down about no longer being able to hike. She has hx of 2-4mi hikes 3-5x/w. Pt weigh was stable x2y at 50-55kg but HT: 154.9cm WT: 46kg (-4% in 1w per [facility] records) UBW: 50-55kg BMI: 19.2 Labs:admit Na 120 L, eGFR 56.2 L, A1c 6.3 H, AST 45 H, B12 974 H MNA: 9 @ risk for malnutrition Kavin: 22 Nutrition Diagnosis: low intake mineral (sodium) r/t nutrition related knowledge deficit aeb pt admitted for hyponatremia c Na+ 120 L, pt has previous hyponatremia, pt reports avoiding all sodium in diet and takes diuretic. Interventions: 1. Encouraged pt to do her own food ordering c room service, kitchen happy to help her c ingredient identification once she has list of sensitivities with her as RD unable to procure list from PCP. 2. Educated pt on importance of not overconsuming sodium to protect cardiovascular health, but pt should get 1500mg/d to avoid further hyponatremia in addition to working c her PCP on medication management. Encouraged pt to continue avoiding processed foods as these are high in added sodium and likely not good for her blood sugar regulation. Diet Order: HH/fluid restriction EER: 1500-2000g Na/d Monitoring/Evaluations: awaiting food sensitivity list
[2020-12-14 12:15] LABS: BUN Creatinine Ratio 31.3 (6-22); Blood Urea Nitrogen 25 mg/dL (7-17); Calcium 9.1 mg/dL (8.4-10.2); Carbon Dioxide 26 mmol/L (22-32); Chloride 93 mmol/L (98-107); Estimated Glomerular Filt Rate > 60.0 mL/min (>60); Glucose 115 mg/dL (80-110); HEMOLYSIS < 15 (0-50); Potassium 3.8 mmol/L (3.4-5.1); Sodium 125 mmol/L (137-145)
--- NOTE | 2020-12-14 14:21 | CM.DANOTE ---
Discharge Planning/Care Management DCP: assessment: case received, EMR reviewed and discussed in Team Rounds. Dr. Connelly stated pt was admitted for symptomatic hyponatremia and would likely be here a couple of days before she was stable for d/c. Plumbing Designer Connie was to see pt today. Met now with pt and introduced self and role. Pt admitted yesterday after seeing her PCP: Dr. Garnica and being sent to the ER as she was not responding to clinic level care. Admission status: INPT with a change to OBS on 12/14: confirmed by [facility] [place]. Payer: Medicare and [facility] [employer]. Pt lives with her Felix in their own home in [place]. Family members live in [place] but son Ghulam is currently here, staying in [place] and will be the person who picks her up at d/c. Ghulam's cell: [phone]. 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 She reports she and her have had several stressful events over the last year involving plumbing problems in their home and medical issues with both. Pt has multiple food allergies and says it has been a bit overwhelming trying to sort it all out. She says she appreciates the help Connie/component inspector has provided. She notes additional stress now that she has been informed her stay is under Observation. They told me I should talk with Dr. Connelly about it. Pt says her mental status and energy level had been greatly diminished in days before she admitted and says she is now beginning to feel more clarity in her mind. P: at this time is home with and prn assist from Ghulam (who is not staying at their home). Did check in again with Dr. Connelly as the H&P was completed today by JOSEPH Ramirez at 0400 so unsure if he will put a note in. He stated he was unsure at this point when pt would be ready for d/c. CM DCP team will be following. CM Discharge Assessment Start: 12/14/20 14:19 Freq: Status: Active Protocol: Document 12/14/20 14:20 ITV (Rec: 12/14/20 14:21 ITV [id number]) Discharge Planning Assessment Advance Directives? No: working on filling out, in process of changing. Advance Directives on File No History Provided By Patient,Medical Record Prior Living Arrangements House Household Members spouse Independent with ADL's Yes Is patient alert and oriented? Yes
--- NOTE | 2020-12-14 14:27 | PM.PN.1 ---
Subjective Subjective Date Patient Seen: 12/14/20 Time Patient Seen: 10:00 Interval history: This is an 85-year-old female with a past medical history significant for asthma, previous hyponatremia, hypertension, CKD, diabetes type 2 (diet controlled), hyperlipidemia and currently taking antibiotics for cellulitis left wrist who is admitted for hyponatremia. Her confusion has improved per patient and son at bedside. She denies any headache, vision changes, weakness, numbness, or tingling. She has no chest pain or shortness of breath. Her sodium corrected too quickly with IV fluids which were held with corresponding decrease in her sodium from 127-125 today. Repeat urine studies were ordered given a urine sodium of 40 on her admission testing which is not indicative of hypovolemic hyponatremia, however this is still the most likely picture and this may be elevated in the setting of her home diuretic. Pending repeat urine sodium, likely to resume normal saline at a lower rate. Exam Vital Signs (past 8 hours): - 12/14/20 07:53 12/14/20 09:29 12/14/20 11:00 Temperature 98.3 F 98.1 F Pulse Rate 66 81 Respiratory Rate 20 19 Blood Pressure 115/73 115/73 131/67 Pulse Oximetry 99 100 Oxygen Delivery Method Room Air Oxygen Flow Rate 0 Narrative Exam Narrative: GENERAL APPEARANCE: Well developed, mildly chronically ill appearing female, BMI 19.2. SKIN: Inspection of the skin reveals no rashes, ulcerations or petechiae. HEENT: Normocephalic atraumatic, extraocular muscles are intact, oropharynx is clear and mucous membranes are moist, neck is supple without adenopathy NECK: Supple and symmetric. There was no thyroid enlargement, and no tenderness, or masses were felt. CHEST: Normal AP diameter and normal contour without any kyphoscoliosis. LUNGS: Auscultation of the lungs revealed no wheezes, rhonchi, or rales. CARDIOVASCULAR: There was a regular rate and rhythm without any murmurs, gallops, rubs. Peripheral pulses were 2+ and symmetric. ABDOMEN: Soft and nontender with normal bowel sounds. No ascites was noted. MUSCULOSKELETAL: There was no tenderness or effusions noted. Muscle strength and tone were normal. EXTREMITIES: No cyanosis, clubbing or edema. NEUROLOGIC: Alert and oriented x 3. Strength is +5/5 in the Upper Extremities and Lower Extremities Bilaterally. Sensation to touch was normal. Psych: cooperative with stable behavior. Slightly reserved. Objective Labs Result Diagrams: 12/14/20 04:57 12/14/20 11:32 Labs: Laboratory Results - last 24 hr 12/13/20 12/13/20 12/13/20 16:56 16:56 16:56 WBC 8.0 RBC 3.69 L Hgb 11.9 L Hct 34.6 L MCV 93.8 MCH 32.3 MCHC 34.5 RDW 13.3 Plt Count 213 Neut % (Auto) 70.3 Lymph % (Auto) 17.5 L Churchill % (Auto) 11.5 Eos % (Auto) 0.3 L Baso % (Auto) 0.4 Neut # (Auto) 5600 Lymph # (Auto) 1400 Churchill # (Auto) 900 Eos # (Auto) 0 Baso # (Auto) 0 PT 12.5 INR 1.1 APTT 31 Sodium 120 L Potassium 3.6 Chloride 82 L Carbon Dioxide 26 BUN 27 H Creatinine 1.28 H Estimated GFR 39.8 L BUN/Creatinine Ratio 21.1 Glucose 129 H Calcium 9.7 Magnesium Total Bilirubin 0.4 AST 46 H ALT 16 Alkaline Phosphatase 84 NT-Pro-B Natriuret Pep Total Protein 7.0 Albumin 4.4 Globulin 2.6 Albumin/Globulin Ratio 1.7 Lipase 475 H TSH Ur Random Sodium SARS-CoV-2 (PCR) 12/13/20 12/13/20 12/13/20 16:56 16:56 16:56 WBC RBC Hgb Hct MCV MCH MCHC RDW Plt Count Neut % (Auto) Lymph % (Auto) Churchill % (Auto) Eos % (Auto) Baso % (Auto) Neut # (Auto) Lymph # (Auto) Churchill # (Auto) Eos # (Auto) Baso # (Auto) PT INR APTT Sodium Potassium Chloride Carbon Dioxide BUN Creatinine Estimated GFR BUN/Creatinine Ratio Glucose Calcium Magnesium 1.7 Total Bilirubin AST ALT Alkaline Phosphatase NT-Pro-B Natriuret Pep 458 H Total Protein Albumin Globulin Albumin/Globulin Ratio Lipase TSH 1.93 Ur Random Sodium SARS-CoV-2 (PCR) 12/13/20 12/13/20 12/13/20 18:19 18:59 23:55 WBC RBC Hgb Hct MCV MCH MCHC RDW Plt Count Neut % (Auto) Lymph % (Auto) Churchill % (Auto) Eos % (Auto) Baso % (Auto) Neut # (Auto) Lymph # (Auto) Churchill # (Auto) Eos # (Auto) Baso # (Auto) PT INR APTT Sodium 124 L Potassium 3.4 Chloride 90 L Carbon Dioxide 26 BUN 23 H Creatinine 0.85 Estimated GFR > 60.0 BUN/Creatinine Ratio 27.1 H Glucose 125 H Calcium 9.3 Magnesium Total Bilirubin AST ALT Alkaline Phosphatase NT-Pro-B Natriuret Pep Total Protein Albumin Globulin Albumin/Globulin Ratio Lipase TSH Ur Random Sodium 40 SARS-CoV-2 (PCR) Negative 12/14/20 12/14/20 12/14/20 04:57 04:57 11:32 WBC 5.2 RBC 3.50 L Hgb 11.3 L Hct 32.9 L MCV 93.9 MCH 32.3 MCHC 34.5 RDW 13.3 Plt Count 191 Neut % (Auto) 61.4 Lymph % (Auto) 23.4 L Churchill % (Auto) 14.0 Eos % (Auto) 0.8 L Baso % (Auto) 0.4 Neut # (Auto) 3200 Lymph # (Auto) 1200 Churchill # (Auto) 700 Eos # (Auto) 0 Baso # (Auto) 0 PT INR APTT Sodium 127 L 125 L Potassium 3.8 3.8 Chloride 94 L 93 L Carbon Dioxide 27 26 BUN 22 H 25 H Creatinine 0.95 0.80 Estimated GFR 56.2 L > 60.0 BUN/Creatinine Ratio 23.2 H 31.3 H Glucose 113 H 115 H Calcium 9.0 9.1 Magnesium Total Bilirubin AST ALT Alkaline Phosphatase NT-Pro-B Natriuret Pep Total Protein Albumin Globulin Albumin/Globulin Ratio Lipase TSH Ur Random Sodium SARS-CoV-2 (PCR) [facility] Medical History (Updated 12/13/20 @ 21:36 by JOSEPH Chambers) Acute hyponatremia Anxiety Asthma Cataracts, bilateral Chickenpox Delusion Diabetes Environmental allergies Hyperlipemia Hypertension Low back pain (~10/2006) Measles Multiple food allergies Mumps Osteoarthritis Rubella Surgical History Hx of cataract surgery (11/2017) Status post breast biopsy (~1995) Family History Brother Diabetes mellitus Father Bladder cancer Congestive heart failure Mother Diabetes mellitus Grandfather Stroke Grandmother Diabetes mellitus Grandfather No problems noted. Grandmother Heart disease Social History household members: spouse Smoking Status: Never smoker alcohol intake: never Assessment & Plan Assessment & Plan narrative: This is an 85-year-old female with a past medical history significant for asthma, previous hyponatremia, hypertension, CKD, diabetes type 2 (diet controlled), hyperlipidemia and currently taking antibiotics for cellulitis left wrist who is admitted for hyponatremia. 1. Acute hyponatremia, present on admission, active -patient with serum sodium of 120 on admission. She demonstrated mild confusion which has improved today. Sodium improved to 127 with IVF, which was subsequently stopped due to avoid overcorrection. Repeat decreased slightly to 125. -cause is multifactorial with increased water intake producing delusional effects as well as chlorthalidone 25 mg daily. -given slight decline, will repeat urine studies as initial shows elevated urine sodium (not consistent with hypovolemic hyponatremia) however the patient is taking a diuretic at home. -continue to hold home chlorthalidone, hold IVF pending repeat urine sodium as noted above, and patient was placed on fluid restriction. She was attempting to eat no sodium in her diet at home per report. 2. Acute kidney injury superimposed on chronic kidney disease stage IIIA, present on admission, active -initial labs find creatinine of 1.28 with an EGFR of 38.9, patient's baseline creatinine 0.94 with an EGFR of 56.9. -patient received normal saline at 100 cc/hour for hyponatremia as above with improvement to 0.8 today. 3. Cellulitis left hand, resolving. -patient diagnosed with cellulitis to the left wrist, presents with redness of the dorsum left hand without pain or swelling. -patient prescribed doxycycline for 7 days started on 12/08/2020. Ordered doxycycline 100 mg twice daily for the remaining 2 days. 4. Diabetes type 2 diet controlled, chronic, stable. -serum glucose is 129 on initial labs. Hemoglobin A1c obtained on 11/23/2020 is 6.3 reflecting adequate glycemic control. -ordered small consistent carbohydrate heart healthy diet. 5. Protein calorie malnutrition, chronic -patient with poor muscle mass and a BMI of 19.2. -requested dietitian consult to evaluate and discuss the patient's food choices and food allergies. Diet: Small consistent carbohydrate heart healthy Code status: Full code, patient designates her son or daughter to be her surrogate decision maker. Dispo: anticipate discharge home once hyponatremia improves, possibly as soon as tomorrow.
[2020-12-14 16:44] LABS: Sodium Urine Random 68 mmol/L (30-90)
[2020-12-14] MEDS: SODIUM CHLORIDE 0.9% 1,000 ML 50 ML IV (18:25)
[2020-12-14 20:26] LABS: BUN Creatinine Ratio 27.4 (6-22); Blood Urea Nitrogen 29 mg/dL (7-17); Calcium 9.3 mg/dL (8.4-10.2); Carbon Dioxide 25 mmol/L (22-32); Chloride 95 mmol/L (98-107); Estimated Glomerular Filt Rate 49.5 mL/min (>60); Glucose 136 mg/dL (80-110); HEMOLYSIS 23 (0-50); Sodium 128 mmol/L (137-145)
[2020-12-15] VITALS (12 sets, daily range): BP systolic 120–151; BP diastolic 58–75; PULSE 63–88; RESP 15–18; TEMP 36.4–36.8; O2SAT 100
[2020-12-15 06:15] LABS: Hematocrit 32.2 % (36-46); Hemoglobin 11.1 g/dL (12.0-16.0); Mean Corpuscular HGB Conc 34.6 % (30-36); Mean Corpuscular Hemoglobin 32.6 PG (26-34); Mean Corpuscular Volume 94.4 fL (80-100); Platelet Count 185 X10^3/uL (150-400); Red Blood Cell Count 3.41 X10^6/uL (4.0-5.2); Red Cell Distribution Width 13.3 % (11.6-14.8); White Blood Cell Count 5.9 X10^3/uL (4.5-11.0)
[2020-12-15 06:16] LABS: Add Manual Diff / Slide Review YES
[2020-12-15 06:17] LABS: BUN Creatinine Ratio 26.3 (6-22); Blood Urea Nitrogen 20 mg/dL (7-17); Calcium 8.6 mg/dL (8.4-10.2); Carbon Dioxide 27 mmol/L (22-32); Chloride 96 mmol/L (98-107); Estimated Glomerular Filt Rate > 60.0 mL/min (>60); Glucose 103 mg/dL (80-110); HEMOLYSIS < 15 (0-50); Magnesium 1.8 mg/dL (1.6-2.3); Potassium 3.7 mmol/L (3.4-5.1); Sodium 127 mmol/L (137-145)
[2020-12-15 06:51] LABS: Neutrophils Absolute Manual 3481 /uL (3000-5900); RBC Morphology Normal Morphology; Total Cells Counted 100
[2020-12-15] MEDS: LOSARTAN 50 MG TABLET 100 MG PO (09:30)
[2020-12-15] MEDS: ENOXAPARIN 30 MG/0.3 ML SYRINGE SUBCUT (09:31)
[2020-12-15] MEDS: DOXYCYCLINE HYCLATE 100 MG TABLET PO (09:31)
[2020-12-15] MEDS: ESCITALOPRAM 10 MG TABLET 5 MG PO (09:31)
[2020-12-15] MEDS: SODIUM CHLORIDE 0.9% 500 ML IV (11:31)
--- NOTE | 2020-12-15 13:46 | PM.PN.1 ---
Subjective Subjective Date Patient Seen: 12/15/20 Time Patient Seen: 09:47 Interval history: She thinks her anxiousness is improving. She does have anxiety chronically, and thinks her anxiety is back to its baseline level. She says she feels slightly confused. Son is at bedside and thinks his mother's mental status is back to baseline. She denies any pain, fevers, nausea/vomiting, or diarrhea. Exam Vital Signs (past 8 hours): - 12/15/20 07:19 12/15/20 09:01 12/15/20 09:30 Temperature 97.6 F Pulse Rate 67 65 65 Respiratory Rate 16 15 Blood Pressure 120/75 120/75 Pulse Oximetry 100 100 12/15/20 13:32 Temperature 98.1 F Pulse Rate 64 Respiratory Rate 15 Blood Pressure 130/68 Pulse Oximetry 100 Oxygen Delivery Method Room Air Oxygen Flow Rate 0 Narrative Exam Narrative: GENERAL APPEARANCE: no acute distress SKIN: Inspection of the skin reveals no rashes, ulcerations or petechiae. HEENT: Normocephalic atraumatic, extraocular muscles are intact, oropharynx is clear and are slightly dry NECK: Supple and symmetric. There was no thyroid enlargement, and no tenderness, or masses were felt. CHEST: Normal AP diameter and normal contour without any kyphoscoliosis. LUNGS: Auscultation of the lungs revealed no wheezes, rhonchi, or rales. CARDIOVASCULAR: There was a regular rate and rhythm without any murmurs, gallops, rubs. Peripheral pulses were 2+ and symmetric. ABDOMEN: Soft and nontender with normal bowel sounds. No ascites was noted. MUSCULOSKELETAL: There was no tenderness or effusions noted. Muscle strength and tone were normal. EXTREMITIES: No cyanosis, clubbing or edema. NEUROLOGIC: Alert and oriented x 3. Strength is +5/5 in the Upper Extremities and Lower Extremities Bilaterally. Sensation to touch was normal. Has slight word finding difficulty Objective Labs Result Diagrams: 12/15/20 05:50 12/15/20 05:50 Labs: Laboratory Results - last 24 hr 12/14/20 12/14/20 12/15/20 16:26 20:03 05:50 WBC 5.9 RBC 3.41 L Hgb 11.1 L Hct 32.2 L MCV 94.4 MCH 32.6 MCHC 34.6 RDW 13.3 Plt Count 185 Neut % (Auto) Not Reportable Lymph % (Auto) Not Reportable Stokes % (Auto) Not Reportable Eos % (Auto) Not Reportable Baso % (Auto) Not Reportable Lymph # (Auto) Not Reportable Stokes # (Auto) Not Reportable Baso # (Auto) Not Reportable Total Counted 100 Seg Neutrophils % 59.0 Lymphocytes % (Manual) 28.0 Monocytes % (Manual) 11.0 Basophils % (Manual) 2.0 H Neutrophils # (Manual) 3481 RBC Morphology Normal morphology Sodium 128 L Potassium 4.0 Chloride 95 L Carbon Dioxide 25 BUN 29 H Creatinine 1.06 H Estimated GFR 49.5 L BUN/Creatinine Ratio 27.4 H Glucose 136 H Calcium 9.3 Magnesium Ur Random Sodium 68 12/15/20 05:50 WBC RBC Hgb Hct MCV MCH MCHC RDW Plt Count Neut % (Auto) Lymph % (Auto) Stokes % (Auto) Eos % (Auto) Baso % (Auto) Lymph # (Auto) Stokes # (Auto) Baso # (Auto) Total Counted Seg Neutrophils % Lymphocytes % (Manual) Monocytes % (Manual) Basophils % (Manual) Neutrophils # (Manual) RBC Morphology Sodium 127 L Potassium 3.7 Chloride 96 L Carbon Dioxide 27 BUN 20 H Creatinine 0.76 Estimated GFR > 60.0 BUN/Creatinine Ratio 26.3 H Glucose 103 Calcium 8.6 Magnesium 1.8 Ur Random Sodium [facility] Medical History (Updated 12/13/20 @ 21:36 by JOSEPH Chambers) Acute hyponatremia Anxiety Asthma Cataracts, bilateral Chickenpox Delusion Diabetes Environmental allergies Hyperlipemia Hypertension Low back pain (~10/2006) Measles Multiple food allergies Mumps Osteoarthritis Rubella Surgical History Hx of cataract surgery (11/2017) Status post breast biopsy (~1995) Family History Brother Diabetes mellitus Father Bladder cancer Congestive heart failure Mother Diabetes mellitus Grandfather Stroke Grandmother Diabetes mellitus Grandfather No problems noted. Grandmother Heart disease Social History household members: spouse Smoking Status: Never smoker alcohol intake: never Assessment & Plan Assessment & Plan narrative: This is an 85-year-old female with a past medical history significant for asthma, previous hyponatremia, hypertension, CKD, diabetes type 2 (diet controlled), hyperlipidemia and currently taking antibiotics for cellulitis left wrist who is admitted for hyponatremia. 1. Acute hyponatremia, present on admission, active -patient with serum sodium of 120 on admission. She demonstrated mild confusion which has improved today. Sodium improved to 127 with IVF, will give bolus and then stop IVF and encourage PO intake -cause is multifactorial with increased water intake, low Na diet, producing dilutional effects as well as chlorthalidone 25 mg daily. -given slight decline, will repeat urine studies as initial shows elevated urine sodium (not consistent with hypovolemic hyponatremia) however the patient is taking a diuretic at home. -continue to hold home chlorthalidone. Liberalize diet and remove fluid restriction, stop IVF, and see if maintains sodium. 2. Acute kidney injury -initial labs find creatinine of 1.28 with an EGFR of 38.9, patient's baseline creatinine 0.94 with an EGFR of 56.9. -patient received normal saline iwth improvement of creatinine to 0.76, GFR>60. Labs not consistent with CKD 3. Cellulitis left hand, resolving. -patient diagnosed with cellulitis to the left wrist, presents with redness of the dorsum left hand without pain or swelling. -patient prescribed doxycycline for 7 days started on 12/08/2020. Ordered doxycycline 100 mg twice daily for the remaining 2 days. 4. Diabetes type 2 diet controlled, chronic, stable. -serum glucose is 129 on initial labs. Hemoglobin A1c obtained on 11/23/2020 is 6.3 reflecting adequate glycemic control. -ordered small consistent carbohydrate heart healthy diet. 5. Protein calorie malnutrition, chronic -patient with poor muscle mass and a BMI of 19.2. -requested dietitian consult to evaluate and discuss the patient's food choices and food allergies. Diet: Small consistent carbohydrate heart healthy Code status: Full code, patient designates her son or daughter to be her surrogate decision maker. Dispo: anticipate discharge home once hyponatremia improves, possibly as soon as tomorrow.
--- NOTE | 2020-12-15 14:32 | PC.NURSE ---
Pt A&Ox3. LS clear throughout. +BS x4. Na+127 this a.m. denies headache, or nausea. Pt denies any pain. Noted scattered bruising from lab draws to B arms, and some bruising to B LE's, knees. Pt denies falling but reports bruising easily. Ambulating with steady gait with FWW, denies needing walker. Ambulating several times in the woods. Fluid restriction dc'd this shift. 0.9 NS IV bolus of 500cc administered after lunch and then ordered to d/c IVF. Plan to recheck Na+ this afternoon and see if it has normalized.
--- NOTE | 2020-12-15 15:37 | CM.DPC ---
DCP Cont: Was going to check in with patient today, but she was sleeping. Discussed at team rounds, and patient's hyponatremia is continuing to improve. She could possibly be ready for discharge tomorrow. P: DCP to continue to follow. Plan is for home when she is medically stable. Polly Amos, REBEL/Director Enterprise Sales
--- NOTE | 2020-12-15 17:11 | PC.NURSE ---
Addendum entered by Audrey Luke R.N. 12/15/20 22:17: Resting quietly in bed listening to music. No concerns or complaints verbalized. Addendum entered by Audrey Luke R.N. 12/15/20 21:05: Inquired if pt continues to experience headache since bolus has completed. Pt reports this remains, but states doesn't take tylenol. Offered pt ice pack to head or other analgesia to treat headache and pt does not provide this specifications writer with definitive answer. States desires to toilet; SHADE CUTTER present in pt's room and assisting with this activity. Pt also admits to nausea, but again, does not provide definitive answer as to treatment desired. Addendum entered by Audrey Luke R.N. 12/15/20 19:45: Pt now back in bed and refuses scd's. States actively ankle waving and calf pumping. States headache is improving. Will continue to monitor specifically following normal saline bolus of 1000 cc/s. Addendum entered by Audrey Luke R.N. 12/15/20 18:49: Pt alert and oriented. States feels as though cognition is returning to baseline. Admits to slight headache when standing which pt reports only takes aspirin. Standby assistance into bathroom to void. Walking in hallway with son and walker. Gait is steady. Pt was informed this evening's sodium 128. New orders per hospitalist for normal saline bolus. Original Note: Up to recliner for evening meal. Lab in to draw blood.
[2020-12-15 18:09] LABS: BUN Creatinine Ratio 32.9 (6-22); Blood Urea Nitrogen 25 mg/dL (7-17); Calcium 9.2 mg/dL (8.4-10.2); Carbon Dioxide 26 mmol/L (22-32); Chloride 94 mmol/L (98-107); Estimated Glomerular Filt Rate > 60.0 mL/min (>60); Glucose 111 mg/dL (80-110); HEMOLYSIS 16 (0-50); Potassium 3.9 mmol/L (3.4-5.1); Sodium 128 mmol/L (137-145)
[2020-12-15] MEDS: SODIUM CHLORIDE 0.9% FLUSH 10 ML IV (19:39)
[2020-12-15] MEDS: SODIUM CHLORIDE 0.9% 1,000 ML 1000 ML IV (19:39)
[2020-12-16 02:57] VITALS: BP 128/62; PULSE 72; RESP 15; TEMP 36.9; O2SAT 99
[2020-12-16 06:00] VITALS: BP 118/63; PULSE 59; RESP 16; TEMP 35.7; O2SAT 100
[2020-12-16 06:11] LABS: Add Manual Diff / Slide Review NO; Basophils Absolute Auto 0 /uL (0-100); Basophils Percent Auto 0.9 % (0-2); Eosinophils Absolute Auto 100 /uL (0-450); Hematocrit 30.6 % (36-46); Hemoglobin 10.5 g/dL (12.0-16.0); Lymphocytes Absolute Auto 1600 /uL (1100-4500); Lymphocytes Percent Auto 31.2 % (25-40); Mean Corpuscular HGB Conc 34.2 % (30-36); Mean Corpuscular Hemoglobin 32.5 PG (26-34); Mean Corpuscular Volume 95.1 fL (80-100); Monocytes Absolute Auto 600 /uL (0-900); Monocytes Percent Auto 12.2 % (3-14); Neutrophils Absolute Auto 2700 /uL (1500-7000); Neutrophils Percent Auto 53.7 % (50-75); Platelet Count 169 X10^3/uL (150-400); Red Blood Cell Count 3.22 X10^6/uL (4.0-5.2); Red Cell Distribution Width 13.4 % (11.6-14.8)
[2020-12-16 06:22] LABS: BUN Creatinine Ratio 26.7 (6-22); Blood Urea Nitrogen 20 mg/dL (7-17); Calcium 8.6 mg/dL (8.4-10.2); Carbon Dioxide 26 mmol/L (22-32); Chloride 100 mmol/L (98-107); Estimated Glomerular Filt Rate > 60.0 mL/min (>60); Glucose 96 mg/dL (80-110); HEMOLYSIS < 15 (0-50); Magnesium 1.8 mg/dL (1.6-2.3); Potassium 3.8 mmol/L (3.4-5.1); Sodium 128 mmol/L (137-145)
[2020-12-16 07:57] VITALS: PULSE 61; RESP 16; O2SAT 99
[2020-12-16 08:36] VITALS: BP 118/64; PULSE 59
[2020-12-16] MEDS: LOSARTAN 50 MG TABLET 100 MG PO (08:36)
[2020-12-16] MEDS: SODIUM CHLORIDE 0.9% FLUSH 10 ML IV (08:37)
[2020-12-16] MEDS: ESCITALOPRAM 10 MG TABLET 5 MG PO (08:37)
[2020-12-16] MEDS: ENOXAPARIN 30 MG/0.3 ML SYRINGE SUBCUT (08:38)
[2020-12-16 11:30] VITALS: BP 143/64; PULSE 62; RESP 16; TEMP 36.7; O2SAT 100
--- NOTE | 2020-12-16 12:53 | PC.NURSE ---
Pt A&Ox3. Some anxiety about discharge costs, charges. Referred pt to follow up with medical billing department tomorrow. VSS, afebrile. Na +128. Ambulating with steady gait, showering with min assist. NSR on telemetry. Patient cleared for discharge this afternoon. IV and tele dc'd. Medications, follow up instructions and diet reviewed with patient.She verbalized understanding of all instructions and comprehension of 1.5 L /day fluid restriction as well as stopping her low sodium diet and adding salt to her diet. Escorted via wheel chair out of facility to private care with son and all of belongings
--- NOTE | 2020-12-16 21:34 | PM.DS.1 ---
History of Present Illness History of Present Illness Chief complaint: Low Sodium Narrative: Per H and P on 12/13/20 by Joshua Ramirez: Ms. Khushbu Neff is an 85-year-old female with a past medical history significant for asthma, previous hyponatremia, hypertension, CKD, diabetes type 2 (diet controlled), hyperlipidemia and currently taking antibiotics for cellulitis left wrist who was sent in to the ER for evaluation by her primary care provider for hyponatremia. The patient was having labs done by her primary care provider found her serum sodium to be 120. For the family the patient has been having more agitation and confusion for the last week. She has started new prescription of escitalopram 5 mg daily. The patient reports to the ED provider that she reports dry to maintain hydration drinking 8 or more glasses water per day. The patient is also on diuretic therapy with chlorthalidone. The patient denies complaints of pain or illness. She denies fevers or chills, nasal congestion or sore throat. She has no complaints of chest pain, palpitations or shortness of breath. The patient denies complaints of abdominal pain, nausea vomiting, diarrhea or constipation. She reports multiple food allergies and avoids salt containing foods. Diabetes is effective diet controlled demonstrated by her last hemoglobin A1c of 6.3 (11/23/2020). Patient reports she does walk and uses walking stick for support. Upon arrival to the ER the patient has a temperature of 98.6?, heart rate of 75, blood pressure 147/67, respirations 17 saturating 100% on room air. No imaging was obtained. Twelve lead EKG feels a normal sinus rhythm at rate of 67 without ectopy or block, no ST or T-wave abnormalities no indication of infarct. On laboratory analysis she has white count of 8.0, hemoglobin 11.9, hematocrit 34.6, platelets 123. Coagulation studies are within normal range. On chemistries she is notable for low sodium of 120, BUN of 27 and creatinine 1.28. Nonfasting glucose is 129. She has a total bilirubin 0.4 and elevated AST of 46, ALT 16 alkaline phosphatase of 84. Her lipase is mildly elevated at 4 75. She has a TSH of 1.93. Her urinalysis is unremarkable and has specific gravity of 1.015. Her spot urine sodium is within normal range of 40. In the ER the patient is started on normal saline 125 cc/hour. The patient is admitted to the hospitalist service for hyponatremia. Discharge Providers Provider Date of admission: 12/13/20 18:53 Discharge Date: 12/16/20 Primary care physician: Jamaal Garnica DO Consults: 12/13/20 20:09 Consult to Dietitian, Adult Routine Comment: Reason For Exam: Recurrent hyponatremia, BMI 18.5 Consult to Discharge Planning Routine Comment: Discharge provider: Ishmael Garcia MD Summary Hospital Course Discharge Diagnosis: 1. Acute hyponatremia, hypovolemic 2. Acute kidney injury 3. Cellulitis left hand, resolved. 4. Type 2 diabetes 5. Protein calorie malnutrition, BMI 19.2 6. Anxiety 7. Hypertension 8. Hyperlipidemia Hospital Course: Ms. Neff is a 85W who presented initially with confusion. She was initially noted to be hypovolemic with a sodium of 120. Prior to admission she had been taking chlorthalidone, had been drinking 8-10 glasses of water daily, and was strictly following a low salt diet. She improved with IV fluids to a sodium of 128 and her symptoms completely resolved. Her urine and serum osms were pending on discharge. She mostly likely had a multifactorial etiology leading to hypovolemic hyponatremia, and on discharge she was recommended to be on a 1.5L fluid restriction, to increase salt in her diet, and to stop chlorthalidone. She should follow up with PCP to monitor sodium further. Of note patient has also been noted to have started on escitalopram for anxiety. She was quite anxious in the hospital. She was continued on this medication, and was reluctant to stop. However, if these other measures do not stop her hyponatremia consideration should be that escitalopram is also contributing to her hyponatremia and she may need this medication changed as well. Her MARIANNA improved quickly with IV fluids. The rest of her medical issues remained stable in the hospital. Code: Full code Discharge time: 40 minutes Status at Discharge Cognitive/behavioral status at discharge: oriented Functional status at discharge: independent ambulation Overall status at discharge: patient is back to baseline Time Spent with Patient Time spent: Greater than 30 minutes Exam Vital Signs (past 8 hours): Oxygen Delivery Method Room Air Oxygen Flow Rate 0 Narrative Exam Narrative: GENERAL APPEARANCE: no acute distress SKIN: Inspection of the skin reveals no rashes, ulcerations or petechiae. HEENT: Normocephalic atraumatic, extraocular muscles are intact, oropharynx is clear, mucous membranes are moist NECK: Supple and symmetric. There was no thyroid enlargement, and no tenderness, or masses were felt. CHEST: Normal AP diameter and normal contour without any kyphoscoliosis. LUNGS: Auscultation of the lungs revealed no wheezes, rhonchi, or rales. CARDIOVASCULAR: There was a regular rate and rhythm without any murmurs, gallops, rubs. Peripheral pulses were 2+ and symmetric. ABDOMEN: Soft and nontender with normal bowel sounds. No ascites was noted. MUSCULOSKELETAL: There was no tenderness or effusions noted. Muscle strength and tone were normal. EXTREMITIES: No cyanosis, clubbing or edema. NEUROLOGIC: Alert and oriented x 3. Strength is +5/5 in the Upper Extremities and Lower Extremities Bilaterally. Sensation to touch was normal. Objective Labs Result Diagrams: 12/16/20 05:45 12/16/20 05:45 Labs: Laboratory Results - last 24 hr 12/16/20 12/16/20 05:45 05:45 WBC 5.0 RBC 3.22 L Hgb 10.5 L Hct 30.6 L MCV 95.1 MCH 32.5 MCHC 34.2 RDW 13.4 Plt Count 169 Neut % (Auto) 53.7 Lymph % (Auto) 31.2 [place] % (Auto) 12.2 Eos % (Auto) 2.0 Baso % (Auto) 0.9 Neut # (Auto) 2700 Lymph # (Auto) 1600 [place] # (Auto) 600 Eos # (Auto) 100 Baso # (Auto) 0 Sodium 128 L Potassium 3.8 Chloride 100 Carbon Dioxide 26 BUN 20 H Creatinine 0.75 Estimated GFR > 60.0 BUN/Creatinine Ratio 26.7 H Glucose 96 Calcium 8.6 Magnesium 1.8 [facility] Medical History (Updated 12/13/20 @ 21:36 by JOSEPH Chambers) Acute hyponatremia Anxiety Asthma Cataracts, bilateral Chickenpox Delusion Diabetes Environmental allergies Hyperlipemia Hypertension Low back pain (~10/2006) Measles Multiple food allergies Mumps Osteoarthritis Rubella Surgical History Hx of cataract surgery (11/2017) Status post breast biopsy (~1995) Family History Brother Diabetes mellitus Father Bladder cancer Congestive heart failure Mother Diabetes mellitus Grandfather Stroke Grandmother Diabetes mellitus Grandfather No problems noted. Grandmother Heart disease Social History household members: spouse Smoking Status: Never smoker alcohol intake: never Discharge Plan Discharge Plan Patient Disposition: Home Provider Discharge Comment: Ms. Neff came to the hospital with confusion. She was found to have a very low sodium level. Prior to coming in she had been on a low sodium diet, drinking a lot of water, and was on chlorthalidone. She was given IV fluids in the hospital and her sodium improved. On discharge it was mildly low at 128. She was feeling back to normal, with no further confusion. She was eating well. She was also noted to have significant anxiety. She had recently been started on anxiety medication with escitalopram, it is possible this is also playing a part in her low sodium. If she continues to be low, it can be considered to stop this medication. Discharge orders & Medications Prescriptions: Continued mecobalamin (vitamin B12) 1,000 mcg tablet,disintegrating 1,000 mcg SL DAILY RF: 0 (DME) [lancets] 0 .Route .MEDSUPPLY Qty: 100 RF: 3 Ventolin HFA 90 mcg/actuation HFA aerosol inhaler 2 puff INHALATION Q4-6H PRN (Reason: shortness of breath or wheezing) Qty: 18 RF: 3 nitroglycerin [Nitrostat] 0.3 mg tablet, sublingual 0.3 mg Sublingual Q5-15M PRN (Reason: chest pain) Qty: 30 RF: 0 (DME) Truetrack test strips See Rx Instructions .Route .MEDSUPPLY Qty: 100 RF: 12 losartan 100 mg tablet 100 mg PO DAILY Qty: 90 RF: 0 escitalopram oxalate 5 mg tablet 5 mg PO DAILY Qty: 30 RF: 0 Align 4 mg Capsule 4 mg PO DAILY RF: 0 mupirocin 2 % Ointment 1 applic TOPICAL BID RF: 0 pantothenic acid (vit B5) 500 mg Tablet 500 mg PO DAILY RF: 0 cyanocobalamin (vitamin B-12) 500 mcg Tablet 500 mcg PO DAILY RF: 0 [id number] Tablet 500 mg PO QAM RF: 0 grape seed extract 100 mg Capsule 1,000 mg PO DAILY RF: 0 Discontinued chlorthalidone 25 mg tablet 12.5 mg PO DAILY Qty: 15 RF: 0 doxycycline hyclate 100 mg tablet 100 mg PO BID 7 Days Qty: 14 RF: 0 Follow up/Referrals: Jamaal Garnica DO [Primary Care Provider] - Discharge Health Status Multidrug resistant organism: No MDRO Diet/Activity/Treatments Diet: Carb-consistent/Diabetic Diet comment: Please keep a 1.5L fluid restriction. Please stop the low sodium diet Visit Report/Discharge Packet Instructions: DI for Hyponatremia Discharge Data Primary Care Provider: Jamaal Garnica
[2020-12-17 12:35] LABS: Osmolality Urine 317 mOsmol/kg (.)
[2020-12-17 12:35] LABS: Osmolality, Serum 263 mOsmol/kg (280-301)
== END 2020-12-16 14:15 | disposition home or self-care (01) | DRG 641 ==
LOC: ED 18:43 → AC 12-14 07:38
PROVIDERS: Emergency Medicine; Internal Medicine; Nurse Practitioner Adult Health; Admitting Provider Internal Medicine; Emergency Provider Nurse Practitioner Family; PCP Family Medicine; Referring Provider Nurse Practitioner Family; Visit Provider Internal Medicine
DX: E87.1 Hypo-osmolality and hyponatremia (principal); N17.9 Acute kidney failure, unspecified; L03.114 Cellulitis of left upper limb; E46 Unspecified protein-calorie malnutrition; Z68.1 Body mass index [BMI] 19.9 or less, adult; I12.9 Hypertensive chronic kidney disease with stage 1 through stage 4 chronic kidney disease, or unspecified chronic kidney disease; N18.30 Chronic kidney disease, stage 3 unspecified; F41.9 Anxiety disorder, unspecified; J45.909 Unspecified asthma, uncomplicated; E11.22 Type 2 diabetes mellitus with diabetic chronic kidney disease; E78.5 Hyperlipidemia, unspecified; Z20.822 Contact with and (suspected) exposure to COVID-19
CPT/HCPCS: 36415; 51798; 80048; 80053; 80061; 81003; 82607; 82962; 83036; 83690; 83735; 83880; 83930; 83935; 84300; 84443; 85007; 85025; 85610; 85730; 87635; 93005; 93010; 94762; 96360; 99284; J1650

== ENCOUNTER → 2020-12-24 08:26 | Outpatient (CLI) | payer MEDICARE, OTHER, SELFPAY ==
[2020-12-13 19:38] VITALS: BMI 18.5
[2020-12-24 10:28] LABS: Alanine Aminotransferase 19 IU/L (<35); Albumin 4.3 g/dL (3.5-5.0); Albumin Globulin Ratio 1.7 (1.0-2.8); Alkaline Phosphatase 75 U/L (38-126); Aspartate Aminotransferase 46 IU/L (14-36); BUN Creatinine Ratio 20.5 (6-22); Bilirubin Total 0.4 mg/dL (0.2-1.3); Blood Urea Nitrogen 18 mg/dL (7-17); Calcium 9.5 mg/dL (8.4-10.2); Carbon Dioxide 27 mmol/L (22-32); Chloride 94 mmol/L (98-107); Estimated Glomerular Filt Rate > 60.0 mL/min (>60); Globulin 2.5 g/dL (1.7-4.1); Glucose 115 mg/dL (80-110); HEMOLYSIS < 15 (0-50); Potassium 4.5 mmol/L (3.4-5.1); Sodium 129 mmol/L (137-145); Total Protein 6.8 g/dL (6.3-8.2)
[2020-12-24 17:27] LABS: Vitamin B12 958 pg/mL (239-931)
== END ==
PROVIDERS: PCP Family Medicine; Referring Provider Family Medicine; Visit Provider Family Medicine
DX: E87.1 Hypo-osmolality and hyponatremia (principal); F22 Delusional disorders; F68.8 Other specified disorders of adult personality and behavior
CPT/HCPCS: 36415; 80053; 82607

== ENCOUNTER → 2020-12-25 09:59 | Outpatient (CLI) | payer MEDICARE, OTHER, SELFPAY ==
[2020-12-13 19:38] VITALS: BMI 18.5
[2020-12-25 12:43] LABS: Bilirubin Urine UA NEGATIVE (NEGATIVE); Color Urine UA YELLOW; Glucose Urine UA NEGATIVE (Negative); Ketones Urine UA NEGATIVE (NEGATIVE); Leukocyte Esterase Urine UA 3+ (NEGATIVE); Nitrite Urine UA NEGATIVE (Negative); Occult Blood Urine UA TRACE-LYSED (Negative); Protein Urine UA TRACE (Negative); Urobilinogen Urine UA 0.2 E.U./dL (0.2)
[2020-12-25 13:18] LABS: Appearance Urine UA Slightly Cloudy; RBC Urine 0-1/HPF (0-5/HPF); WBC Urine 10-30/HPF (0-5/HPF); pH Urine UA 6.5 (4.5-8.0)
[2020-12-25 13:19] LABS: Amorphous Sediment Urine 1+; Bacteria Urine Few (2-10); Culture Indicated Urine Specimen Cultured; Squamous Epithelial Cell Urine 1-5 /HPF (0-5/HPF)
== END ==
PROVIDERS: PCP Family Medicine; Referring Provider Family Medicine; Visit Provider Family Medicine
DX: R30.0 Dysuria (principal)
CPT/HCPCS: 81001; 87077; 87086; 87185; 87186